=== PATIENT | female | born 1960 | race Caucasian/White ===

== ENCOUNTER → 2017-09-17 | Outpatient (CLI) | payer OTHER ==
--- NOTE | 2017-09-18 13:24 | BD ---
EXAMINATION TYPE: Axial Bone Density DATE OF EXAM: 09/17/2017 COMPARISON: NONE CLINICAL HISTORY: Postmenopausal female. Osteoporosis screening. Height: 68.5 Weight: 167.6 FRAX RISK QUESTIONS: Alcohol (3 or more units per day): no Family History (Parent hip fracture): no Glucocorticoids (More than 3mos): no (Ex: prednisone, prednisolone, methylprednisolone, dexamethasone, and hydrocortisone). History of Fracture in Adulthood: yes Secondary Osteoporosis: 1. Type 1 Diabetes: no 2. Hyperthyroidism: no 3. Menopause before 45: no 4. Malnutrition: no 5. Chronic liver disease: yes Rheumatoid Arthritis: no Current Tobacco Use: yes RISK FACTORS HISTORY OF: History of Wrist Fracture: right When: 2 years ago Surgery to Spine/Hip(right/left)/Wrist (right/left): right wrist When: 2 years ago Family History of Osteoporosis: yes Active: yes Diet low in dairy products/other sources of calcium: no Postmenopausal woman: 2006 Lost more than 2 inches in height since high school: no Frequent falls: no MEDICATIONS: lasix, aldactone, ursadol, coreg Additional History: EXAM MEASUREMENTS: Bone mineral densitometry was performed using the VeriWave System. Bone mineral density as measured about the Lumbar spine is: ----- L1-L4(G/cm2): 0.965 T Score Values are as follows: ----- L2: -1.6 ----- L3: -1.9 ----- L4: -1.9 ----- L1-L4: -1.8 Bone mineral density : baseline Bone mineral density about the R hip (g/cm2): 0.655 Bone mineral density about the L hip (g/cm2): 0.698 T Score values are as follows: -----R Neck: -2.8 -----L Neck: -2.4 -----R Total: -2.6 -----L Total: -2.4 Bone mineral density : baseline IMPRESSION: Osteoporosis (T Score less than -2.5) with regards to the right femur. There is increased fracture risk and therapy is usually indicated based on age. Re-Screen 1-2 years. NOTE: T-SCORE=SD OF THE YOUNG ADULT MEAN.
--- NOTE | 2017-09-23 13:46 | MM ---
Reason for exam: screening (asymptomatic). Last mammogram was performed 1 year and 7 months ago. History: Patient is postmenopausal. Benign left mammotome panel of the left breast, March 23, 2007. Core biopsy of the left breast, September 2006. Taking estrogen for 2 years beginning at age 45. Physical Findings: A clinical breast exam by your physician is recommended on an annual basis and results should be correlated with mammographic findings. MG Screening Mammo w CAD Bilateral CC and MLO view(s) were taken. Prior study comparison: March 02, 2016, bilateral MG 3d screening mammo w/cad. December 09, 2014, bilateral MG screening mammo w CAD. The breast tissue is heterogeneously dense. This may lower the sensitivity of mammography. Finding: There are typically benign calcifications in both breasts, similar to priors. New middle posterior depth distortion at the 11:30 position on the right. Left breast biopsy marker noted. ASSESSMENT: Incomplete: need additional imaging evaluation, BI-RAD 0 RECOMMENDATION: Special view mammogram of the right breast. If lesion persists on supplemental views, image directed ultrasound is recommended. [facility] will attempt to contact patient to return for supplemental views and ultrasound if indicated.
== END | disposition home or self-care (01) ==
LOC: RADMAMWWP 13:34
PROVIDERS: ATTEND Obstetrics & Gynecology
DX: Z12.31 Encounter for screening mammogram for malignant neoplasm of breast (principal); Z13.820 Encounter for screening for osteoporosis; M81.0 Age-related osteoporosis without current pathological fracture
CPT/HCPCS: 77067; 77080

== ENCOUNTER → 2017-10-08 | Outpatient (CLI) | payer OTHER ==
--- NOTE | 2017-10-08 14:22 | MM ---
Reason for exam: additional evaluation requested from abnormal screening. Last mammogram was performed 1 month ago. History: Patient is postmenopausal. Benign left mammotome panel of the left breast, March 23, 2007. Core biopsy of the left breast, September 2006. Taking estrogen for 2 years beginning at age 45. Physical Findings: Nurse did not find any significant physical abnormalities on exam. MG Work Up Mamm w CAD RT Spot compression CC, spot compression MLO, and ML view(s) were taken of the right breast. Prior study comparison: September 17, 2017, bilateral MG screening mammo w CAD. March 02, 2016, bilateral MG 3d screening mammo w/cad. The breast tissue is heterogeneously dense. This may lower the sensitivity of mammography. Finding: There are typically benign calcifications in the right breast. No suspicious abnormality. The previously seen abnormality appears as fibroglandular tissue on additional views. No significant changes in finding since September 17, 2017 and March 02, 2016. These results were verbally communicated with the patient and result sheet given to the patient on 10/08/17. ASSESSMENT: Benign, BI-RAD 2 RECOMMENDATION: Return to routine screening mammogram schedule for both breasts.
== END | disposition home or self-care (01) ==
LOC: RADMAMWWP 13:34
PROVIDERS: ATTEND Obstetrics & Gynecology
DX: R92.8 Other abnormal and inconclusive findings on diagnostic imaging of breast (principal)
CPT/HCPCS: 77065

== ENCOUNTER → 2018-10-14 | Outpatient (CLI) | payer OTHER ==
--- NOTE | 2018-10-14 14:04 | NM ---
EXAMINATION TYPE: NM bone scan whole body DATE OF EXAM: 10/14/2018 COMPARISON: Outside x-rays dated 10/11/2018, 10/12/2018 HISTORY: Pain Delayed whole-body scanning was performed following the injection of 26.1 mCi Tc 99m MDP. Images acq uired 3 hours post injection. FINDINGS: There is intense abnormal uptake involving the right maxilla. There is abnormal uptake involving the anterior mid right rib cage which is nonspecific. Abnormal uptake involving the feet, knees, and shoulders likely post arthritic. There is mild increased uptake involving the mid and lower thoracic spine and lumbosacral junction. T here is no marked increased uptake involving L2 corresponding to the endplate compression deformity. This suggest that is chronic. IMPRESSION: 1. Intense abnormal uptake involving the right maxilla correlate clinically and with x-ray as clinica lly warranted. 2. Mild intensity uptake seen throughout the mid and lower thoracic and lumbosacral junction likely d egenerative. 3. focal area of increased uptake involving the anterior right mid rib cage likely the basis of previ ous trauma.
== END ==
LOC: RADNMMAIN 10:11
PROVIDERS: ATTEND Physical Medicine & Rehabilitation
DX: R93.7 Abnormal findings on diagnostic imaging of other parts of musculoskeletal system (principal)
CPT/HCPCS: 78306; A9503

== ENCOUNTER → 2019-06-30 | Outpatient (CLI) | payer OTHER ==
--- NOTE | 2019-07-02 13:26 | MM ---
Reason for exam: screening (asymptomatic). Last mammogram was performed 1 year and 9 months ago. History: Patient is postmenopausal. Benign left mammotome panel of the left breast, March 23, 2007. Core biopsy of the left breast, September 2006. Took estrogen for 2 years beginning at age 45. Physical Findings: A clinical breast exam by your physician is recommended on an annual basis and results should be correlated with mammographic findings. MG Screening Mammo w CAD Bilateral CC and MLO view(s) were taken. Prior study comparison: October 08, 2017, right breast MG work up mamm w CAD RT. September 17, 2017, bilateral MG screening mammo w CAD. There are scattered fibroglandular densities. Previous mammotome biopsy in the left breast. Global asymmetry is unchanged with associated calcifications. Stable central and medial asymmetric density left CC view. No significant changes when compared with prior studies. ASSESSMENT: Benign, BI-RAD 2 RECOMMENDATION: Routine screening mammogram of both breasts in 1 year.
== END | disposition home or self-care (01) ==
LOC: RADMAMWWP 13:47
PROVIDERS: ATTEND Obstetrics & Gynecology
DX: Z12.31 Encounter for screening mammogram for malignant neoplasm of breast (principal)
CPT/HCPCS: 77067

== ENCOUNTER 2021-04-08 11:37 | Inpatient (IN) | payer OTHER ==
[2021-04-08] MEDS ORDERED: MORPHINE SULFATE 4 MG/ML SYRINGE IV STA (12:39)
[2021-04-08] MEDS ORDERED: SODIUM CHLORIDE 0.9% 1,000 ML IV STA (12:40)
[2021-04-08 13:27] LABS: Basophils % (A) 1 %; Eosinophils % (A) 1 %; HCT 42.2 % (34.0-46.0); Lymphocytes # (A) 0.5 k/uL (1.0-4.8); Lymphocytes % (A) 8 %; MCH 32.5 pg (25.0-35.0); MCHC 33.2 g/dL (31.0-37.0); MCV 97.9 fL (80.0-100.0); Macrocytosis Slight; Mean Platelet Volume 7.8; Monocytes # (A) 0.5 k/uL (0-1.0); Monocytes % (A) 8 %; Neutrophils # (A) 4.9 k/uL (1.3-7.7); Neutrophils % (A) 81 %; Platelet Count 109 k/uL (150-450); RBC 4.31 m/uL (3.80-5.40); RDW 15.5 % (11.5-15.5); WBC 6.1 k/uL (3.8-10.6)
[2021-04-08 13:35] LABS: INR 1.2 (<1.2); Partial Thromboplastin Time 24.6 sec (22.0-30.0)
[2021-04-08 13:37] LABS: ALT 22 U/L (4-34); AST 41 U/L (14-36); African American GFR (CKD) >90 (>60 ml/min/1.73 sqM); Alkaline Phosphatase 122 U/L (38-126); Amylase <30 U/L (30-110); Anion Gap 10 mmol/L; Blood Urea Nitrogen 13 mg/dL (7-17); Calcium 8.8 mg/dL (8.4-10.2); Carbon Dioxide 24 mmol/L (22-30); Chloride 97 mmol/L (98-107); Glucose 137 mg/dL (74-99); Lipase 103 U/L (23-300); Non-African American GFR(CKD) >90 (>60 ml/min/1.73 sqM); Potassium 4.3 mmol/L (3.5-5.1); Sodium 131 mmol/L (137-145); Total Protein 6.4 g/dL (6.3-8.2)
--- NOTE | 2021-04-08 13:52 | US ---
EXAMINATION TYPE: US renals and bladder DATE OF EXAM: 04/08/2021 COMPARISON: CT abdomen and pelvis 10/15/2018 CLINICAL HISTORY: decreased urination. EXAM MEASUREMENTS: Right Kidney: 7.9 x 4.6 x 4.4 cm Left Kidney: 9.9 x 5.4 x 5.2 cm Right Kidney: No hydronephrosis or masses seen, limited visualization due to overlying bowel and asci keith, measures small Left Kidney: No hydronephrosis or masses seen, limited visualization due to overlying bowel and ascit es Bladder: wnl, not distended Moderate ascites in pelvis Incidental Splenomegaly (17.8cm), moderate ascites, grossly heterogeneous, nodular, liver, known cirr hosis. There is no evidence for hydronephrosis at this point in time. No nephrolithiasis is seen. No andie s are identified. The urinary bladder is anechoic. Bilateral ureteral jets are seen. IMPRESSION: 1. Limited evaluation with no gross evidence of obstructive uropathy. 2. Hepatic cirrhosis with with sequela of portal hypertension including splenomegaly and ascites.
[2021-04-08] MEDS ORDERED: MORPHINE SULFATE 4 MG/ML SYRINGE IVP STA (14:59)
--- NOTE | 2021-04-08 15:15 | CT ---
EXAMINATION TYPE: CT abdomen pelvis w con DATE OF EXAM: 04/08/2021 COMPARISON: 10/15/2018 HISTORY: Hernia repair 02-28-21, surgery for bowel obstruction 03-30-21, distention and pain, decreased urine output. CT DLP: 1337.4 mGycm Automated exposure control for dose reduction was used. CONTRAST: Performed with IV Contrast, patient injected with 100 mL of Isovue 300. Images obtained from the diaphragm to the floor the pelvis with IV contrast. There is some mild interstitial infiltrate at the lung bases. There is no pleural effusion. Heart siz e is normal. There is no pericardial effusion. Liver is irregular and small consistent with cirrhosis. There is moderate abdominal ascites. Spleen i s enlarged and measures 14.5 cm. There are some splenic varices. There is no evidence of pancreatic m ass. There is differential enhancement in the portal venous system that could relate to some thrombos is. There is no adrenal mass. Kidneys show satisfactory contrast opacification. There is no hydronephrosi s. There is deformity of the right kidney with nonrotation. There is no retroperitoneal adenopathy. B ladder distends smoothly. There is no inguinal hernia. There is subcutaneous edema over the anterior abdomen. The lumbar vertebra have normal alignment. There is 20% compression deformity of T12. There is 15% co mpression of L2. The bony pelvis is intact. IMPRESSION: Splenomegaly and changes in the liver consistent with cirrhosis. There is moderate amount of abdomina l ascites. There is evidence for some chronic portal vein thrombosis with incomplete thrombosis of th e portal vein and superior mesenteric vein. Splenic varices related to chronic portal venous hypertension. Ascites appears new compared to old exam. Portal vein thrombosis is new compared to old exam.
[2021-04-08] MEDS ORDERED: HEPARIN SODIUM 1,000 UN/ML (10ML VL) IV ONE (15:44)
[2021-04-08 16:38] LABS: Appearance,Urine Clear (Clear); Bilirubin,Urine Negative (Negative); Blood,Urine Negative (Negative); Color,Urine Yellow; Glucose,Urine (UA) Negative (Negative); Ketones,Urine Trace (Negative); Leukocyte Esterase,Urine Negative (Negative); Mucus,Urine Moderate /hpf; Nitrite,Urine Negative (Negative); Protein,Urine 1+ (Negative); RBC,Urine 3 /hpf (0-5); Squamous Epithelial Cell,Urine 2 /hpf (0-4); WBC,Urine <1 /hpf (0-5)
[2021-04-08] MEDS ORDERED: ONDANSETRON 4 MG/2 ML VIAL IVP STA (16:38)
[2021-04-08] MEDS: HEPARIN SOD,PORK IN 0.45% NACL 25,000 UNIT in 0.45% NACL 1 250ML.BAG IV SCH (16:40)
[2021-04-08 16:42] LABS: Specific Gravity,Urine >1.050 (1.001-1.035)
[2021-04-08] MEDS ORDERED: NALOXONE 0.4 MG/ML 1 ML VIAL IV PRN ×2 (17:34→17:36)
[2021-04-08] MEDS ORDERED: MORPHINE SULFATE 4 MG/ML SYRINGE IV PRN (17:45)
[2021-04-08] MEDS ORDERED: ONDANSETRON 4 MG/2 ML VIAL IVP PRN (17:45)
[2021-04-08] MEDS ORDERED: FUROSEMIDE 40 MG TAB PO SCH (18:30)
--- NOTE | 2021-04-08 19:45 | HP ---
HISTORY AND PHYSICAL CHIEF COMPLAINTS: Abdominal pain and distention as well as ascitic fluid leak. HISTORY OF PRESENT ILLNESS: This 60-year-old woman with a past medical history of primary biliary cirrhosis, history of hyperlipidemia, history of hernia repair, history of DJD, being followed by Dr. Sutton in the outpatient setting, is also being followed by [facility]ology [facility]. The patient apparently had surgery on February 28 for hernia repair, and then March 30 patient had repeat surgery for apparent small-bowel obstruction. Records are not available at this time, but after the surgery the patient experienced some leaking from the surgical site, but in any case the patient was discharged. The patient was not feeling well over the past several days, and because of increasing abdominal distention as well as the leak from the surgical site, patient presented to [facility] and was admitted for further evaluation and treatment. The ER team are contacted [facility]. Apparently there is no bed at this time and the patient was recommended to report to the nearest hospital at this time. Gastroenterology consultation has been also sought. The patient is willing to stay here to undergo treatment and evaluation here at this time. The patient also was found to have portal vein thrombosis in the in the CT scan of the abdomen and pelvis. The ER physician tried to talk with the [facility] team; and it was not clear whether this is acute or chronic. The CT scan showed splenomegaly and changes in the liver consistent with cirrhosis and moderate amount of abdominal ascites. Some chronic portal vein thrombosis was suspect with incomplete thrombosis of the portal vein and the superior mesenteric vein also. related to chronic portal venous hypertension was also noted. There is no history of any fever, rigor or chills at this time. PAST MEDICAL HISTORY: History of primary biliary cirrhosis, liver disease, recent two surgeries as mentioned earlier. MEDICATIONS PRIOR TO ADMISSION: Aldactone, Lasix, Coreg, Actigall, Keflex. Doses are reviewed. ALLERGIES: NONE. FAMILY HISTORY: No history of heart disease or strokes in the family. SOCIAL HISTORY: Previous history of smoking. No history of alcohol intake. No substance abuse. REVIEW OF SYSTEMS: ENT: No diminished hearing. No diminished vision. CARDIOVASCULAR SYSTEM: No angina, palpitations. RESPIRATORY SYSTEM: As mentioned earlier. GI: As mentioned earlier. : No dysuria. NERVOUS SYSTEM: No numbness, weakness. ALLERGY/IMMUNOLOGY: No asthma or hay fever. MUSCULOSKELETAL: As mentioned earlier. HEMATOLOGY/ONCOLOGY: No history of anemia. ENDOCRINE: No history of diabetes or hypothyroidism. CONSTITUTIONAL: As mentioned earlier. DERMATOLOGY: Negative. RHEUMATOLOGY: Negative. PSYCHIATRY: As mentioned earlier. PHYSICAL EXAMINATION: Patient is alert, oriented x3. Pulse is 129, blood pressure 104/72, respiration 18, temperature 97.1, pulse ox 96% on room air. HEENT: Conjunctivae normal. Oral mucosa moist. NECK: No jugular venous distention. No carotid bruit. No lymph node enlargement. CARDIOVASCULAR: S1, S2 muffled. RESPIRATION: Breath sounds diminished at the bases. No rhonchi. No crackles. ABDOMEN: Soft. Diffusely distended. Ascites present. Flanks are dull. Otherwise, minimal tenderness postoperatively. No guarding. No rigidity. No mass palpable. LEGS: No edema. No swelling. NERVOUS SYSTEM: Higher functions as mentioned earlier. Moves all 4 limbs. No focal motor or sensory deficit. LYMPHATICS: No lymph node palpable in neck, axillae or groin. SKIN: No ulcer, rash, bleeding. JOINTS: No active deforming arthropathy. LABS: Labs at this time show WBC 6.1 and platelets 109. INR is 1.2. Sodium is 131, creatinine 0.4, glucose 137, AST is 41, amylase less than 30. UA noted. CT scan of the chest and CT scan of the abdomen and pelvis noted. Splenomegaly and other changes as detailed. A renal ultrasound was also done which showed no gross evidence of obstructive uropathy; also hepatic cirrhosis noted. ASSESSMENT: 1. Abdominal ascites as well as leaking from the surgical site, possibly secondary to cirrhosis of the liver. 2. History of recent surgery for small bowel obstruction as well as hiatal hernia x2 from elsewhere, [facility]. 3. Possible acute on chronic portal vein thrombosis. 4. Hyperlipidemia. 5. History of primary biliary cirrhosis. 6. History of hernia repair. 7. Hysterectomy. 8. History of degenerative joint disease. 9. Remote history of nicotine dependence. 10.FULL CODE. RECOMMENDATIONS AND DISCUSSION: In this 60-year-old woman who presented with multiple complex medical issues, we will monitor the patient closely, continue the current medications, continue symptomatic treatment. Pain control. Diuretics. I would also recommend consultation with Surgery as well as Gastroenterology. [facility] has been contacted, as mentioned earlier, before. I would also recommend ascitic fluid aspiration and studies. Empiric antibiotic coverage will be offered. Prognosis is guarded because of multiple complex medical issues. Further recommendations to follow. A copy of this dictation being forwarded to Dr. Sutton, who is the primary physician. Repeat labs also will be done. Discussed with the patient and her at the bedside, who understand and agree. MMODL / IJN: [id number] /
[2021-04-08] MEDS: FUROSEMIDE 10 MG/ML 4 ML VIAL IV SCH (20:12)
--- NOTE | 2021-04-08 20:28 | ED ---
General Adult HPI - General Chief complaint: Abdominal Pain Stated complaint: post bowel obstruction surg pain Time Seen by Provider: 04/08/21 12:06 Source: patient Mode of arrival: wheelchair Limitations: no limitations - History of Present Illness Initial comments: Patient is a 60-year-old female with past medical history remarkable for primary biliary cirrhosis status post recent abdominal hernia surgery and subsequent small bowel obstruction surgery performed at [facility] presents emergency Department complaining of worsening ascites and abdominal distention. She states this is been ongoing over the last week or so. She has also noticed that she is having decreased urinary output. She denies any chest pain, diarrhea or change in bowel habits. She still passing flatus. Denies any nausea. Her complaint is the abdominal distention. She denies any fevers, chills, sick contacts. She denies any cough. She has been taking water pills but did not take them this morning. Does endorse some mild baseline ascites. She has noticed some ascitic fluid oozing from her surgical incision midline in her abdomen. She called her surgeon today at [facility] who recommended that she presented to the emergency department for evaluation. - Related Data Home Medications Medication Instructions Recorded Confirmed Carvedilol [Coreg] 6.25 mg PO DIRECTED 10/15/18 04/08/21 Furosemide [Lasix] 40 mg PO DIRECTED 10/15/18 04/08/21 Spironolactone [Aldactone] 100 mg PO DIRECTED 10/15/18 04/08/21 ursodioL [Actigall] 600 mg PO DIRECTED 10/15/18 04/08/21 Cephalexin [Keflex] 500 mg PO BID 04/08/21 04/08/21 Allergies Allergy/AdvReac Type Severity Reaction Status Date / Time No Known Allergies Allergy Verified 04/08/21 15:10 Review of Systems ROS Statement: Those systems with pertinent positive or pertinent negative responses have been documented in the HPI. Review of Systems: CONST: Denies fever EYES: Denies blurry vision ENT: Denies nasal congestion C/V: Denies Chest pain RESP: Denies shortness of breath GI: Endorses abdominal distention : Denies dysuria SKIN: Endorses leaking surgical site MSK: Denies joint pain. NEURO: Denies headache ROS Other: All systems not noted in ROS Statement are negative. Past Medical History Past Medical History: Hyperlipidemia, Liver Disease Additional Past Medical History / Comment(s): primary biliary cirrhosis History of Any Multi-Drug Resistant Organisms: None Reported Past Surgical History: Hernia Repair, Hysterectomy, Orthopedic Surgery Additional Past Surgical History / Comment(s): R wrist, mat feet surgery Past Anesthesia/Blood Transfusion Reactions: No Reported Reaction Past Psychological History: No Psychological Hx Reported Smoking Status: Former smoker Past Alcohol Use History: None Reported Past Drug Use History: None Reported - Past Family History family Additional Family Medical History / Comment(s): No history of premature CAD General Exam - General Exam Comments Initial Comments: General: Mild distress secondary to abdominal discomfort. HEAD: Normal with no signs of head trauma. EYES: PERRLA, EOMI, conjunctiva normal, no discharge. ENT: Hearing grossly intact, normal oropharynx. RESPIRATORY: Clear breath sounds bilaterally. No wheezes, rales, or rhonchi. C/V: Tachycardic, regular rhythm. S1 and S2 auscultated. Peripheral pulses are 2+ intact. No peripheral edema. ABD: Abdomen is distended, nontender. Positive fluid wave. Patient appears to have ascites. No guarding. No peritoneal signs. EXT: Normal range of motion, no obvious deformity SKIN: No rashes or lesions observed on exposed skin. NEURO: Alert and oriented 4. Limitations: no limitations Course Vital Signs 04/08/21 04/08/21 04/08/21 11:39 15:00 18:00 Temperature 97.1 F L Pulse Rate 129 H 110 H 115 H Respiratory 18 18 16 Rate Blood Pressure 104/72 110/70 134/74 O2 Sat by Pulse 96 98 100 Oximetry Medical Decision Making - Medical Decision Making Based on the patient's presentation and physical exam, and concern for her worsening ascites. She may have an acute blockage, renal failure, or other intra-abdominal process at this time. We will obtain abdominal laboratory studies, EKG, abdominal imaging including ultrasound of the kidneys and bladder as well as CT abdomen and pelvis. She'll be given morphine for pain management. She also be given Zofran. She was in agreement this plan. Laboratory studies are relatively unremarkable, except for mild hyponatremia of 131 and hyperchloremia of 97. Lactate is 1.5 and normal. Before meals is mildly elevated to 41. There but is mildly elevated at 3.0. Albumin is low at 3.0. Urinalysis is unremarkable. Patient's EKG shows no signs of acute ischemi a. Renal ultrasound revealed no evidence of obstructive uropathy. There is hepatic cirrhosis with portal hypertension including splenomegaly and ascites. CT imaging was obtained and revealed splenomegaly redemonstrated, as well as moderate abdominal ascites with a chronic portal vein thrombosis with incomplete thrombosis of the portal vein and superior mesenteric vein. Parasplenic varices. Ascites is new compared to prior exams. I discussed with the patient that due to the portal vein thrombosis, I would like to start her on heparin. She was in agreement this plan. I spoke with Dr. Estrada of vascular surgery who was in agreement this plan and will evaluate the patient tomorrow. The patient requested that I reach out to [facility] which was done. I spoke with the surgical team there, a resident named Sheridan multiple times. She turned down the transfer, as the hospital is only excepting urgent transfers at this time. However she was able to compare imaging and they decided that the portal vein thrombosis may be worse than her there most recent CT imaging. They believe heparin is reasonable. They requested she be admitted and evaluated by GI services here. We will have GI services starting tomorrow on April 09. Dr. Best will be consulted for evaluation. I spoke with Dr. Foss of surgery who agreed to evaluate the patient. I discussed with him the leaking ascitic fluid, and as there are no signs of acute infection we will hold off on antibiotics at this time. We will restart her home diuresis. There were in agreement this plan. Patient may require paracentesis on this admission, however I'll defer to gastroenterology's evaluation, she is feeling improved on reevaluation at this time.Spoke with the admitting team under Dr. Belcher who accepted the admission. Patient was admitted in serous condition. - Lab Data Result diagrams: 04/08/21 13:08 04/08/21 13:08 Lab Results 04/08/21 04/08/21 04/08/21 Range/Units 13:08 13:08 13:08 WBC 6.1 (3.8-10.6) k/uL RBC 4.31 (3.80-5.40) m/uL Hgb 14.0 (11.4-16.0) gm/dL Hct 42.2 (34.0-46.0) % MCV 97.9 (80.0-100.0) fL MCH 32.5 (25.0-35.0) pg MCHC 33.2 (31.0-37.0) g/dL RDW 15.5 (11.5-15.5) % Plt Count 109 L (150-450) k/uL MPV 7.8 Neutrophils % 81 % Lymphocytes % 8 % Monocytes % 8 % Eosinophils % 1 % Basophils % 1 % Neutrophils # 4.9 (1.3-7.7) k/uL Lymphocytes # 0.5 L (1.0-4.8) k/uL Monocytes # 0.5 (0-1.0) k/uL Eosinophils # 0.0 (0-0.7) k/uL Basophils # 0.0 (0-0.2) k/uL Macrocytosis Slight PT 12.0 (9.0-12.0) sec INR 1.2 H (<1.2) APTT 24.6 (22.0-30.0) sec Sodium 131 L (137-145) mmol/L Potassium 4.3 (3.5-5.1) mmol/L Chloride 97 L (98-107) mmol/L Carbon Dioxide 24 (22-30) mmol/L Anion Gap 10 mmol/L BUN 13 (7-17) mg/dL Creatinine 0.44 L (0.52-1.04) mg/dL Est GFR (CKD-EPI)AfAm >90 (>60 ml/min/1.73 sqM) Est GFR (CKD-EPI)NonAf >90 (>60 ml/min/1.73 sqM) Glucose 137 H (74-99) mg/dL Plasma Lactic Acid Kenneth (0.7-2.0) mmol/L Calcium 8.8 (8.4-10.2) mg/dL Total Bilirubin 3.0 H (0.2-1.3) mg/dL AST 41 H (14-36) U/L ALT 22 (4-34) U/L Alkaline Phosphatase 122 (38-126) U/L Total Protein 6.4 (6.3-8.2) g/dL Albumin 3.0 L (3.5-5.0) g/dL Amylase <30 L (30-110) U/L Lipase 103 (23-300) U/L Urine Color Urine Appearance (Clear) Urine pH (5.0-8.0) Ur Specific [place] (1.001-1.035) Urine Protein (Negative) Urine Glucose (UA) (Negative) Urine Ketones (Negative) Urine Blood (Negative) Urine Nitrite (Negative) Urine Bilirubin (Negative) Urine Urobilinogen (<2.0) mg/dL Ur Leukocyte Esterase (Negative) Urine RBC (0-5) /hpf Urine WBC (0-5) /hpf Ur Squamous Epith Cells (0-4) /hpf Urine Mucus (None) /hpf 04/08/21 04/08/21 04/08/21 Range/Units 14:40 15:30 16:27 WBC (3.8-10.6) k/uL RBC (3.80-5.40) m/uL Hgb (11.4-16.0) gm/dL Hct (34.0-46.0) % MCV (80.0-100.0) fL MCH (25.0-35.0) pg MCHC (31.0-37.0) g/dL RDW (11.5-15.5) % Plt Count (150-450) k/uL MPV Neutrophils % % Lymphocytes % % Monocytes % % Eosinophils % % Basophils % % Neutrophils # (1.3-7.7) k/uL Lymphocytes # (1.0-4.8) k/uL Monocytes # (0-1.0) k/uL Eosinophils # (0-0.7) k/uL Basophils # (0-0.2) k/uL Macrocytosis PT (9.0-12.0) sec INR (<1.2) APTT 24.2 (22.0-30.0) sec Sodium (137-145) mmol/L Potassium (3.5-5.1) mmol/L Chloride (98-107) mmol/L Carbon Dioxide (22-30) mmol/L Anion Gap mmol/L BUN (7-17) mg/dL Creatinine (0.52-1.04) mg/dL Est GFR (CKD-EPI)AfAm (>60 ml/min/1.73 sqM) Est GFR (CKD-EPI)NonAf (>60 ml/min/1.73 sqM) Glucose (74-99) mg/dL Plasma Lactic Acid Kenneth 1.5 (0.7-2.0) mmol/L Calcium (8.4-10.2) mg/dL Total Bilirubin (0.2-1.3) mg/dL AST (14-36) U/L ALT (4-34) U/L Alkaline Phosphatase (38-126) U/L Total Protein (6.3-8.2) g/dL Albumin (3.5-5.0) g/dL Amylase (30-110) U/L Lipase (23-300) U/L Urine Color Yellow Urine Appearance Clear (Clear) Urine pH 6.0 (5.0-8.0) Ur Specific [place] >1.050 H (1.001-1.035) Urine Protein 1+ H (Negative) Urine Glucose (UA) Negative (Negative) Urine Ketones Trace H (Negative) Urine Blood Negative (Negative) Urine Nitrite Negative (Negative) Urine Bilirubin Negative (Negative) Urine Urobilinogen 4.0 (<2.0) mg/dL Ur Leukocyte Esterase Negative (Negative) Urine RBC 3 (0-5) /hpf Urine WBC <1 (0-5) /hpf Ur Squamous Epith Cells 2 (0-4) /hpf Urine Mucus Moderate H (None) /hpf - EKG Data -: EKG Interpreted by Me EKG Comments: 12-lead Electrocardiogram Interpretation Note EKG was reviewed and interpreted by myself. 12-lead ECG performed at 1258 is interpreted by me as revealing sinus tachycardia at a rate of 117 beats per minute. [place] is normal. MO interval is 130 ms, QRS duration 60 ms, QTc is 415 ms.. There were no ST or T wave abnormalities to suggest myocardial ischemia or injury. R wave progression across the precordium was satisfactory. By my interpretation this EKG is non-diagnostic for acute ischemia. Critical Care Time Critical Care Time: Yes Total Critical Care Time: 30 Critical Care Time: Upon my evaluation, this patient had a high probability of imminent or life- threatening deterioration due to portal venous thrombosis, acute ascites, which required my direct attention, intervention, and personal management. I have personally provided 30 minutes of critical care time exclusive of time spent on separately billable procedures. Time includes review of laboratory data, radiology results, discussion with consultants and patient's outside doctors, and monitoring for potential decompensation. Interventions were performed as documented in my note. Disposition Clinical Impression: Ascites, Portal vein thrombosis, Portal venous hypertension, Abdominal pain Disposition: ADMITTED IP TO THIS HOSP Condition: Serious
[2021-04-08] MEDS ORDERED: SPIRONOLACTONE 25 MG TAB PO SCH (21:00)
[2021-04-08] MEDS: SPIRONOLACTONE 25 MG TAB PO SCH (21:40)
[2021-04-08] MEDS: PANTOPRAZOLE 40 MG/10 ML VIAL IVP SCH (21:43)
[2021-04-09] MEDS: carvediloL 6.25 MG TAB PO SCH (00:55)
[2021-04-09] MEDS: FUROSEMIDE 10 MG/ML 4 ML VIAL IV SCH ×4 (00:56→19:48)
[2021-04-09] MEDS: SPIRONOLACTONE 25 MG TAB PO SCH (08:24)
[2021-04-09] MEDS: HEPARIN SODIUM 1,000 UN/ML (10ML VL) IV PRN ×2 (08:24→15:52)
[2021-04-09] MEDS: PANTOPRAZOLE 40 MG/10 ML VIAL IVP SCH ×2 (08:30→19:48)
[2021-04-09 09:04] LABS: African American GFR (CKD) 121.1 (60.0-200.0); Albumin 2.8 g/dL (3.8-4.9); Albumin/Globulin Ratio 1.12 (1.60-3.17); Anion Gap 8.2 mmol/L (10.00-18.00); BUN/Creat Ratio 22.6 Ratio (12.00-20.00); Blood Urea Nitrogen 11.3 mg/dL (9.0-27.0); Calcium 8.8 mg/dL (8.7-10.3); Carbon Dioxide 25.8 mmol/L (20.0-27.5); Globulin 2.5 g/dL (1.6-3.3); Non-African American GFR(CKD) 104.5 (60.0-200.0); Potassium 5.3 mmol/L (3.5-5.5); Total Bilirubin 1.6 mg/dL (0.30-1.20); Total Protein 5.3 g/dL (6.2-8.2)
[2021-04-09 09:21] LABS: INR 1.12 (0.90-1.11); Prothrombin Time 12.3 sec (9.9-11.9)
[2021-04-09 10:13] LABS: Basophils # (A) 0.02 X 10*3/uL (0.00-0.10); Basophils % (A) 0.6 %; Eosinophils # (A) 0.04 X 10*3/uL (0.04-0.35); Eosinophils % (A) 1.1 %; HCT 37.6 % (37.2-46.3); HGB 11.6 g/dL (12.0-15.0); Lymphocytes # (A) 0.45 X 10*3/uL (0.90-5.00); Lymphocytes % (A) 12.5 %; MCH 30.9 pg (27.0-32.0); MCHC 30.9 g/dL (32.0-37.0); Mean Platelet Volume 10.1 fL (9.5-12.2); Monocytes # (A) 0.47 X 10*3/uL (0.20-1.00); Monocytes % (A) 13.1 %; Neutrophils # (A) 2.59 X 10*3/uL (1.80-7.70); Neutrophils % (A) 72.1 %; Platelet Count 71 X 10*3/uL (140-440); RBC 3.76 X 10*6/uL (4.10-5.20); RDW 15.5 % (11.5-14.5); WBC 3.59 X 10*3/uL (4.50-10.00)
--- NOTE | 2021-04-09 12:29 | P.GSCN ---
History of Present Illness Consult date: 04/09/21 History of present illness: 60-year-old female with known primary biliary cirrhosis presents to the emergency department with ascites drainage from recent abdominal wound. She did undergo an umbilical hernia repair on February 28 of this year after Thanksgivin g, the patient began having significant abdominal distention and nausea and vomiting. On work-up, she was found to have a small bowel obstruction. She did return to the [facility] to follow with her previous surgeon and did undergo a laparotomy with release of the small bowel obstruction on March 30. She was discharged on April 03. On arrival to the emergency department, patient complained of significant distention of the abdomen and leakage of clear fluid from the inferior portion of the abdominal wound. She denies any nausea or vomiting. She did have abdominal pain associated with this issue. Review of Systems All systems: negative Past Medical History Past Medical History: Hyperlipidemia, Liver Disease Additional Past Medical History / Comment(s): primary biliary cirrhosis History of Any Multi-Drug Resistant Organisms: None Reported Past Surgical History: Hernia Repair, Hysterectomy, Orthopedic Surgery Additional Past Surgical History / Comment(s): R wrist, mat feet surgery Past Anesthesia/Blood Transfusion Reactions: No Reported Reaction Past Psychological History: No Psychological Hx Reported Smoking Status: Former smoker Past Alcohol Use History: None Reported Past Drug Use History: None Reported - Past Family History family Additional Family Medical History / Comment(s): No history of premature CAD Medications and Allergies Home Medications Medication Instructions Recorded Confirmed Type Carvedilol [Coreg] 6.25 mg PO HS 10/15/18 04/09/21 History Furosemide [Lasix] 40 mg PO BID 10/15/18 04/09/21 History Spironolactone [Aldactone] 100 mg PO BID 10/15/18 04/09/21 History ursodioL [Actigall] 600 mg PO BID 10/15/18 04/09/21 History Cephalexin [Keflex] 500 mg PO BID 04/08/21 04/08/21 History Allergies Allergy/AdvReac Type Severity Reaction Status Date / Time No Known Allergies Allergy Verified 04/08/21 15:10 Surgical - Exam Osteopathic Statement: *. No significant issues noted on an osteopathic structural exam other than those noted in the History and Physical/Consult. Vital Signs Temp Pulse Resp BP Pulse Ox 97.1 F L 129 H 18 104/72 96 04/08/21 11:39 12/12/21 11:39 04/08/21 11:39 04/08/21 11:39 04/08/21 11:39 - General no distress - Eyes normal ocular movement - ENT no hearing loss - Neck trachea midline - Respiratory normal respiratory effort - Abdomen Soft, nontender, midline incision with ascitic drainage from the inferior portion of the wound, moderate distention, no rebound, no guarding - Psychiatric oriented to time, oriented to person, oriented to place Results - Labs 04/09/21 04:27 04/09/21 04:27 Abnormal Lab Results - Last 24 Hours (Table) 04/08/21 04/08/21 04/08/21 Range/Units 13:08 13:08 13:08 WBC (4.50-10.00) X 10*3/uL RBC (4.10-5.20) X 10*6/uL Hgb (12.0-15.0) g/dL MCV (80.0-97.0) fL MCHC (32.0-37.0) g/dL RDW (11.5-14.5) % Plt Count 109 L (150-450) k/uL Plt Count Comment Lymphocytes # 0.5 L (1.0-4.8) k/uL PT (9.9-11.9) sec INR 1.2 H (<1.2) APTT (22.0-30.0) sec Sodium 131 L (137-145) mmol/L Chloride 97 L (98-107) mmol/L Anion Gap (10.00-18.00) mmol/L Creatinine 0.44 L (0.52-1.04) mg/dL BUN/Creatinine Ratio (12.00-20.00) Ratio Glucose 137 H (74-99) mg/dL Total Bilirubin 3.0 H (0.2-1.3) mg/dL AST 41 H (14-36) U/L Total Protein (6.2-8.2) g/dL Albumin 3.0 L (3.5-5.0) g/dL Albumin/Globulin Ratio (1.60-3.17) g/dL Amylase <30 L (30-110) U/L Ur Specific [place] (1.001-1.035) Urine Protein (Negative) Urine Ketones (Negative) Urine Mucus (None) /hpf 04/08/21 04/08/21 04/09/21 Range/Units 15:30 20:00 04:27 WBC (4.50-10.00) X 10*3/uL RBC (4.10-5.20) X 10*6/uL Hgb (12.0-15.0) g/dL MCV (80.0-97.0) fL MCHC (32.0-37.0) g/dL RDW (11.5-14.5) % Plt Count (150-450) k/uL Plt Count Comment Lymphocytes # (1.0-4.8) k/uL PT 12.3 H (9.9-11.9) sec INR 1.12 H (<1.2) APTT 61.1 H (22.0-30.0) sec Sodium (137-145) mmol/L Chloride (98-107) mmol/L Anion Gap (10.00-18.00) mmol/L Creatinine (0.52-1.04) mg/dL BUN/Creatinine Ratio (12.00-20.00) Ratio Glucose (74-99) mg/dL Total Bilirubin (0.2-1.3) mg/dL AST (14-36) U/L Total Protein (6.2-8.2) g/dL Albumin (3.5-5.0) g/dL Albumin/Globulin Ratio (1.60-3.17) g/dL Amylase (30-110) U/L Ur Specific [place] >1.050 H (1.001-1.035) Urine Protein 1+ H (Negative) Urine Ketones Trace H (Negative) Urine Mucus Moderate H (None) /hpf 04/09/21 04/09/21 04/09/21 Range/Units 04:27 04:27 06:28 WBC 3.59 L (4.50-10.00) X 10*3/uL RBC 3.76 L (4.10-5.20) X 10*6/uL Hgb 11.6 L (12.0-15.0) g/dL MCV 100.0 H (80.0-97.0) fL MCHC 30.9 L (32.0-37.0) g/dL RDW 15.5 H (11.5-14.5) % Plt Count 71 L (150-450) k/uL Plt Count Comment DECREASED A Lymphocytes # 0.45 L (1.0-4.8) k/uL PT (9.9-11.9) sec INR (<1.2) APTT 37.7 H (22.0-30.0) sec Sodium 133 L (137-145) mmol/L Chloride (98-107) mmol/L Anion Gap 8.20 L (10.00-18.00) mmol/L Creatinine 0.5 L (0.52-1.04) mg/dL BUN/Creatinine Ratio 22.60 H (12.00-20.00) Ratio Glucose (74-99) mg/dL Total Bilirubin 1.60 H (0.2-1.3) mg/dL AST (14-36) U/L Total Protein 5.3 L (6.2-8.2) g/dL Albumin 2.8 L (3.5-5.0) g/dL Albumin/Globulin Ratio 1.12 L (1.60-3.17) g/dL Amylase (30-110) U/L Ur Specific [place] (1.001-1.035) Urine Protein (Negative) Urine Ketones (Negative) Urine Mucus (None) /hpf Diabetes panel 04/08/21 04/09/21 Range/Units 13:08 04:27 Sodium 131 L 133 L (137-145) mmol/L Potassium 4.3 5.3 (3.5-5.1) mmol/L Chloride 97 L 99 (98-107) mmol/L Carbon Dioxide 24 25.8 (22-30) mmol/L BUN 13 11.3 (7-17) mg/dL Creatinine 0.44 L 0.5 L (0.52-1.04) mg/dL Glucose 137 H 102 (74-99) mg/dL Calcium 8.8 8.8 (8.4-10.2) mg/dL AST 41 H 28 (14-36) U/L ALT 22 17 (4-34) U/L Alkaline Phosphatase 122 105 (38-126) U/L Total Protein 6.4 5.3 L (6.3-8.2) g/dL Albumin 3.0 L 2.8 L (3.5-5.0) g/dL Calcium panel 04/08/21 04/09/21 Range/Units 13:08 04:27 Calcium 8.8 8.8 (8.4-10.2) mg/dL Albumin 3.0 L 2.8 L (3.5-5.0) g/dL Pituitary panel 04/08/21 04/09/21 Range/Units 13:08 04:27 Sodium 131 L 133 L (137-145) mmol/L Potassium 4.3 5.3 (3.5-5.1) mmol/L Chloride 97 L 99 (98-107) mmol/L Carbon Dioxide 24 25.8 (22-30) mmol/L BUN 13 11.3 (7-17) mg/dL Creatinine 0.44 L 0.5 L (0.52-1.04) mg/dL Glucose 137 H 102 (74-99) mg/dL Calcium 8.8 8.8 (8.4-10.2) mg/dL Adrenal panel 04/08/21 04/09/21 Range/Units 13:08 04:27 Sodium 131 L 133 L (137-145) mmol/L Potassium 4.3 5.3 (3.5-5.1) mmol/L Chloride 97 L 99 (98-107) mmol/L Carbon Dioxide 24 25.8 (22-30) mmol/L BUN 13 11.3 (7-17) mg/dL Creatinine 0.44 L 0.5 L (0.52-1.04) mg/dL Glucose 137 H 102 (74-99) mg/dL Calcium 8.8 8.8 (8.4-10.2) mg/dL Total Bilirubin 3.0 H 1.60 H (0.2-1.3) mg/dL AST 41 H 28 (14-36) U/L ALT 22 17 (4-34) U/L Alkaline Phosphatase 122 105 (38-126) U/L Total Protein 6.4 5.3 L (6.3-8.2) g/dL Albumin 3.0 L 2.8 L (3.5-5.0) g/dL Assessment and Plan Plan: 60-year-old female with history of primary biliary cirrhosis and ascites draining from recent surgical wound. Case was discussed with the patient's hepatobiliary surgeon, Dr. Hany Sheridan, at the [facility] where she had her previous procedures performed.We are unable to transfer the patient to his service based on the current Covid pandemic and no bed availability having shortages. At this time, he agrees with the plan for diuresis and therapeutic paracentesis along with likely suturing of the incision site with 2-0 nylon suture and application of skin glue. Additionally, we will await GI recommendations. This is likely secondary to mild decompensation of the liver after multiple procedures in the last month or so.
--- NOTE | 2021-04-09 15:25 | P.PN ---
Subjective Progress Note Date: 04/09/21 This is a pleasant 60-year-old female who was recently admitted with increasing abdominal distention and some leaking from previous surgical site from March 30 and was recently discharged on April 03 from [facility]. Patient follows with Dr. Hany Sheridan out of [facility] and c onversation is being discussed as there are no beds available to transfer to [facility]. Patient had surgery consult along with GI for possible paracentesis and surgical intervention to this leaking site on the abdomen and patient reluctant to proceed with paracentesis until all medical consultations have discussed with Dr. sheridan treatment plan moving forward. General surgery Dr. Foss following and did discuss the case with the [facility] and GI consult is pending. 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 Patient is maintained on IV heparin will need to be held prior to paracentesis. A she to continue with IV Lasix twice daily along with oral Aldactone and patient also continues on IV ceftriaxone. Infectious disease also consulted and pending. Labs: White blood count is 3.59, hemoglobin is 11.6, platelets are 71, INR is 1.12, sodium is 133, potassium 5.3, BUN 11.3, creatinine 0.5, calcium 8.8, total bilirubin 1.6, LFTs within normal limits, albumin low at 2.8, COVID-19 was negative Review of systems: Constitutional: No reports of fatigue, fever, or chills Cardiovascular: No reports of chest pain or palpitations Respiratory: No reports of shortness of breath or cough GI: No reports of nausea, vomiting, or diarrhea, reports abdominal distention and some tenderness with continued leaking at the recent surgical site : No reports of dysuria or retention Neurovascular: No reports of weakness or numbness All medications have been reviewed Active Medications Carvedilol (Carvedilol 6.25 Mg Tab) 6.25 mg PO HS [facility] Last Admin: 04/09/21 00:55 Dose: Not Given Documented by: Furosemide (Furosemide 10 Mg/Ml 4 Ml Vial) 40 mg IV Q8HR [facility] Last Admin: 04/09/21 08:30 Dose: 40 mg Documented by: Heparin Sodium (Porcine) (Heparin Sodium 1,000 Un/Ml (10ml Vl)) 0 unit IV PER PROTOCOL PRN; Protocol PRN Reason: Low PTT Last Admin: 04/09/21 08:24 Dose: 1,996 unit Documented by: Heparin Sodium/Sodium Chloride (25,000 unit/ Sodium Chloride) 250 mls @ 9.58 mls/hr IV .Q24H [facility]; Protocol Last Titration: 04/09/21 08:10 Dose: 14 units/kg/hr, 11.176 mls/hr Documented by: Ceftriaxone Sodium 1 gm/ (Sodium Chloride) 50 mls @ 100 mls/hr IVPB Q24HR [facility] Last Admin: 04/09/21 08:30 Dose: 100 mls/hr Documented by: Morphine Sulfate (Morphine Sulfate 4 Mg/Ml Syringe) 4 mg IV Q4HR PRN PRN Reason: Severe Pain Last Admin: 04/08/21 20:11 Dose: 4 mg Documented by: Naloxone HCl (Naloxone 0.4 Mg/Ml 1 Ml Vial) 0.2 mg IV Q2M PRN PRN Reason: Opioid Reversal Ondansetron HCl (Ondansetron 4 Mg/2 Ml Vial) 4 mg IVP Q8HR PRN PRN Reason: Nausea And Vomiting Last Admin: 04/08/21 22:18 Dose: 4 mg Documented by: Pantoprazole Sodium (Pantoprazole 40 Mg/10 Ml Vial) 40 mg IVP BID [facility] Last Admin: 04/09/21 08:30 Dose: 40 mg Documented by: Spironolactone (Spironolactone 25 Mg Tab) 100 mg PO DAILY [facility] Last Admin: 04/09/21 08:24 Dose: 100 mg Documented by: Physical exam: Gen: This is a 60-year-old female awake, alert and oriented 3, well-developed, well-nourished. Temp is 97.7F, pulse is 86, respirations are 18, blood pressure is 88/63, oxygen saturation is 99% on room air HEENT: Head is atraumatic, normocephalic. Pupils equal, round. Sclerae is anicteric. NECK: Supple. No JVD. No lymphadenopathy. No thyromegaly. LUNGS: Diminished breath sounds bilaterally with no wheezing or rhonchi noted. No intercostal retractions. HEART: S1, S2 are muffled ABDOMEN: Soft. Distended. Bowel sounds are present. No masses. No tenderness. Multiple ABD pads noted EXTREMITIES: No pedal edema. No calf tenderness. NEUROLOGICAL: Patient is awake, alert and oriented x3. Cranial nerves 2 through 12 are grossly intact. Assessment: Abdominal ascites as well as leaking from the surgical site, possibly secondary to cirrhosis of the liver History of recent surgery for small bowel obstruction as well as hiatal hernia 2 at the [facility] Possible acute on chronic portal vein thrombosis History of primary biliary cirrhosis Hyperlipidemia history of hernia repair History of hysterectomy history of degenerative joint disease remote history of nicotine dependence Full code Plan: Recommend to continue with current medications and management. Patient is maintained on IV Lasix and Aldactone has been added. Gen. surgery Dr. Foss following closely along with GI being consulted and infectious disease. Patient is maintained on IV ceftriaxone and will continue. Plan is for paracentesis with fluid analysis and Dr. Foss has discussed with Dr. sheridan out of [facility] who is the patient's provider for recent surgeries. Patient maintained on IV heparin and will hold for 4 hours prior to paracentesis and patient is agreeable to undergo paracentesis in the morning. Repeat a.m. labs and continue to monitor closely. Further recommendations to follow based on the clinical course of the patient. Due to multiple complex medical issues, prognosis is guarded. Objective - Vital Signs Vital signs: Vital Signs Temp 97.9 F 04/09/21 13:25 Pulse 100 04/09/21 13:25 Resp 16 04/09/21 13:25 BP 156/89 04/09/21 13:25 Pulse Ox 90 L 04/09/21 13:25 Intake & Output 04/08/21 04/09/21 04/09/21 18:59 06:59 18:59 Intake Total 266.49 Balance 266.49 Weight 79.832 kg Intake: Intake, IV Titration 148.49 Amount Heparin Sod,Pork in 0.45% 148.49 NaCl 25,000 unit In 0.45 % NaCl 1 250ml.bag @ 12 UNITS/KG/HR 9.58 mls/hr IV .Q24H [facility] Rx#: [id number] Oral 118 Other: Voiding Method Toilet Toilet # Voids 2 4 # Bowel Movements 0 - Labs CBC & Chem 7: 04/09/21 04:27 04/09/21 04:27 Labs: Abnormal Lab Results - Last 24 Hours (Table) 04/08/21 04/08/21 04/09/21 Range/Units 15:30 20:00 04:27 WBC (4.50-10.00) X 10*3/uL RBC (4.10-5.20) X 10*6/uL Hgb (12.0-15.0) g/dL MCV (80.0-97.0) fL MCHC (32.0-37.0) g/dL RDW (11.5-14.5) % Plt Count (140-440) X 10*3/uL Plt Count Comment Lymphocytes # (0.90-5.00) X 10*3/uL PT 12.3 H (9.9-11.9) sec INR 1.12 H (0.90-1.11) APTT 61.1 H (22.0-30.0) sec Sodium (135-145) mmol/L Anion Gap (10.00-18.00) mmol/L Creatinine (0.6-1.5) mg/dL BUN/Creatinine Ratio (12.00-20.00) Ratio Total Bilirubin (0.30-1.20) mg/dL Total Protein (6.2-8.2) g/dL Albumin (3.8-4.9) g/dL Albumin/Globulin Ratio (1.60-3.17) g/dL Ur Specific [place] >1.050 H (1.001-1.035) Urine Protein 1+ H (Negative) Urine Ketones Trace H (Negative) Urine Mucus Moderate H (None) /hpf 04/09/21 04/09/21 04/09/21 Range/Units 04:27 04:27 06:28 WBC 3.59 L (4.50-10.00) X 10*3/uL RBC 3.76 L (4.10-5.20) X 10*6/uL Hgb 11.6 L (12.0-15.0) g/dL MCV 100.0 H (80.0-97.0) fL MCHC 30.9 L (32.0-37.0) g/dL RDW 15.5 H (11.5-14.5) % Plt Count 71 L (140-440) X 10*3/uL Plt Count Comment DECREASED A Lymphocytes # 0.45 L (0.90-5.00) X 10*3/uL PT (9.9-11.9) sec INR (0.90-1.11) APTT 37.7 H (22.0-30.0) sec Sodium 133 L (135-145) mmol/L Anion Gap 8.20 L (10.00-18.00) mmol/L Creatinine 0.5 L (0.6-1.5) mg/dL BUN/Creatinine Ratio 22.60 H (12.00-20.00) Ratio Total Bilirubin 1.60 H (0.30-1.20) mg/dL Total Protein 5.3 L (6.2-8.2) g/dL Albumin 2.8 L (3.8-4.9) g/dL Albumin/Globulin Ratio 1.12 L (1.60-3.17) g/dL Ur Specific [place] (1.001-1.035) Urine Protein (Negative) Urine Ketones (Negative) Urine Mucus (None) /hpf
--- NOTE | 2021-04-09 16:06 | P.CONS ---
History of Present Illness - Reason for Consult Consult date: 04/09/21 ascites Requesting physician: Urmila Lopez - Chief Complaint Abdominal pain and distention - History of Present Illness This is 60-year-old female with a past medical history of primary biliary cirrhosis diagnosed approximately 22 years ago, hyperlipidemia, history of rece nt hernia repair on 02/28/2021 done at [facility]. The patient follows with her liver specialist [facility]. States she was having worsening symptoms with her hernia and went for scheduled elective hernia repair on February 28. She was discharged home and began having abdominal pain. She was then readmitted and underwent an exploratory lap for bowel obstruction on March 30. Patient states she did not require any bowel resection at that time. She was then discharged a few days ago. She was feeling better and went home during her hospitalization she states that she had not been on any diuretics and restarted her Aldactone and her Lasix on Friday. Patient states she a few years back had ultrasound showing mild ascites and was started on diuretics at that time by her liver specialist. She denies any previous history of paracentesis. She had been noticing over the last few days increased abdominal distention and started having leaking of fluid from her abdominal incision. Gen. surgery Dr. Foss has been consulted and apparently spoke to the patient's surgeon. Plan is for paracentesis. The patient had a CT of the abdomen and also showed portal vein thrombosis and she was started on an IV heparin drip. Patient states she has been having moderate to large amount of fluid draining throughout the night. She's been afebrile. She denies any abdominal pain. She states that abdominal distention has been improving with the amount of fluid she's been losing. She's been afebrile. No evidence of leukocytosis. WBC 3.5 hemoglobin 11.6 platelet count 71,000 INR 1.1 total bilirubin 1.6 AST 28 ALT 17 alkaline phosphatase 105 Review of Systems REVIEW OF SYSTEMS: CARDIOPULMONARY: No chest pain or shortness of breath. Gastrointestinal: Abdominal distention. Recent abdominal surgery with fluid leaking from incision site. No nausea or vomiting. No hematemesis, coffee- ground emesis. No rectal bleeding, or melena. GENITOURINARY: No dysuria or hematuria. MUSCULOSKELETAL: Reports normal range of motion., Joint pain. SKIN: No rashes. No jaundice. ENDOCRINE: No chills, fevers. No excessive weight gain or loss. No polydipsia or polyuria. PSYCHIATRIC: Unremarkable. NEUROLOGY: No change in mental status. Denies dizziness, headache. ENT: Vision unremarkable. CONSTITUTIONAL: No recent weight loss. No fever, chills, night sweats. Past Medical History Past Medical History: Hyperlipidemia, Liver Disease Additional Past Medical History / Comment(s): primary biliary cirrhosis History of Any Multi-Drug Resistant Organisms: None Reported Past Surgical History: Hernia Repair, Hysterectomy, Orthopedic Surgery Additional Past Surgical History / Comment(s): R wrist, mat feet surgery Past Anesthesia/Blood Transfusion Reactions: No Reported Reaction Past Psychological History: No Psychological Hx Reported Smoking Status: Former smoker Past Alcohol Use History: None Reported Past Drug Use History: None Reported - Past Family History family Additional Family Medical History / Comment(s): No history of premature CAD Medications and Allergies Home Medications Medication Instructions Recorded Confirmed Type Carvedilol [Coreg] 6.25 mg PO HS 10/15/18 04/09/21 History Furosemide [Lasix] 40 mg PO BID 10/15/18 04/09/21 History Spironolactone [Aldactone] 100 mg PO BID 10/15/18 04/09/21 History ursodioL [Actigall] 600 mg PO BID 10/15/18 04/09/21 History Cephalexin [Keflex] 500 mg PO BID 04/08/21 04/08/21 History Allergies Allergy/AdvReac Type Severity Reaction Status Date / Time No Known Allergies Allergy Verified 04/08/21 15:10 Physical Exam Vitals: Vital Signs Temp Pulse Pulse Resp BP BP Pulse Ox 04/09/21 08:25 99 100/65 04/09/21 07:00 97.7 F 86 18 88/63 99 04/09/21 02:56 98.2 F 89 16 99/69 97 04/09/21 01:14 18 04/08/21 21:37 98.5 F 111 H 18 97/67 97 04/08/21 21:30 18 04/08/21 21:12 105 H 18 110/74 98 04/08/21 18:00 115 H 16 134/74 100 04/08/21 15:00 110 H 18 110/70 98 04/08/21 11:39 97.1 F L 129 H 18 104/72 96 Intake and Output 04/08/21 04/09/21 04/09/21 22:59 06:59 14:59 Intake Total 148.49 Balance 148.49 Intake: Intake, IV Titration 148.49 Amount Heparin Sod,Pork in 0.45% 148.49 NaCl 25,000 unit In 0.45 % NaCl 1 250ml.bag @ 12 UNITS/KG/HR 9.58 mls/hr IV .Q24H [facility] Rx#: [id number] Other: Voiding Method Toilet Toilet # Voids 1 2 Weight 79.832 kg General appearance: The patient is alert, oriented, appears in no acute distress. HET: Head is normocephalic and atraumatic. Conjunctiva pink. Sclera anicteric. Neck: Supple without lymphadenopathy. Trachea midline. Heart: S1 S2. Regular rate and rhythm. Lungs: Clear to auscultation. Abdomen: Soft, nontender, nondistended with bowel sounds. No guarding or rigidity. Abdominal incision mid abdomen with the distal aspect draining clear and serosanguineous drainage. Skin: No rashes. No jaundice. Extremities: Normal skin color and turgor. No pedal edema. Neurological: No focal deficits. Alert and oriented x3. Results CBC & Chem 7: 04/09/21 04:27 04/09/21 04:27 Labs: Abnormal Lab Results - Last 24 Hours (Table) 04/08/21 04/08/21 04/08/21 Range/Units 13:08 13:08 13:08 Plt Count 109 L (150-450) k/uL Lymphocytes # 0.5 L (1.0-4.8) k/uL PT (9.9-11.9) sec INR 1.2 H (<1.2) APTT (22.0-30.0) sec Sodium 131 L (137-145) mmol/L Chloride 97 L (98-107) mmol/L Anion Gap (10.00-18.00) mmol/L Creatinine 0.44 L (0.52-1.04) mg/dL BUN/Creatinine Ratio (12.00-20.00) Ratio Glucose 137 H (74-99) mg/dL Total Bilirubin 3.0 H (0.2-1.3) mg/dL AST 41 H (14-36) U/L Total Protein (6.2-8.2) g/dL Albumin 3.0 L (3.5-5.0) g/dL Albumin/Globulin Ratio (1.60-3.17) g/dL Amylase <30 L (30-110) U/L Ur Specific [place] (1.001-1.035) Urine Protein (Negative) Urine Ketones (Negative) Urine Mucus (None) /hpf 04/08/21 04/08/21 04/09/21 Range/Units 15:30 20:00 04:27 Plt Count (150-450) k/uL Lymphocytes # (1.0-4.8) k/uL PT 12.3 H (9.9-11.9) sec INR 1.12 H (<1.2) APTT 61.1 H (22.0-30.0) sec Sodium (137-145) mmol/L Chloride (98-107) mmol/L Anion Gap (10.00-18.00) mmol/L Creatinine (0.52-1.04) mg/dL BUN/Creatinine Ratio (12.00-20.00) Ratio Glucose (74-99) mg/dL Total Bilirubin (0.2-1.3) mg/dL AST (14-36) U/L Total Protein (6.2-8.2) g/dL Albumin (3.5-5.0) g/dL Albumin/Globulin Ratio (1.60-3.17) g/dL Amylase (30-110) U/L Ur Specific [place] >1.050 H (1.001-1.035) Urine Protein 1+ H (Negative) Urine Ketones Trace H (Negative) Urine Mucus Moderate H (None) /hpf 04/09/21 04/09/21 Range/Units 04:27 06:28 Plt Count (150-450) k/uL Lymphocytes # (1.0-4.8) k/uL PT (9.9-11.9) sec INR (<1.2) APTT 37.7 H (22.0-30.0) sec Sodium 133 L (137-145) mmol/L Chloride (98-107) mmol/L Anion Gap 8.20 L (10.00-18.00) mmol/L Creatinine 0.5 L (0.52-1.04) mg/dL BUN/Creatinine Ratio 22.60 H (12.00-20.00) Ratio Glucose (74-99) mg/dL Total Bilirubin 1.60 H (0.2-1.3) mg/dL AST (14-36) U/L Total Protein 5.3 L (6.2-8.2) g/dL Albumin 2.8 L (3.5-5.0) g/dL Albumin/Globulin Ratio 1.12 L (1.60-3.17) g/dL Amylase (30-110) U/L Ur Specific [place] (1.001-1.035) Urine Protein (Negative) Urine Ketones (Negative) Urine Mucus (None) /hpf CT scan - abdomen: report reviewed (Splenomegaly and changes in the liver consistent with cirrhosis. Moderate amount of abdominal ascites. Evidence for some chronic portal vein thrombosis with complete thrombosis of the portal vein and superior mesenteric vein. Splenic varices. Ascites new compared to old exam.) Assessment and Plan (1) Ascites Narrative/Plan: This 60-year-old female with a history of primary biliary cirrhosis diagnosed approximately 22 years ago who calls with [facility]. Patient recently underwent hernia repair March 27 followed by bowel obstruction for which she underwent exploratory lap March 30 again at [facility]. She was discharged home however at that time states she did have some abdominal distention however states nobody seemed concerned. During her hospitalization she states she had not been on her diuretics but has been on diuretics for some time now related to ascites. She denies any previous paracentesis in the past. And states that her ascites has been controlled with her diuretics. She states that she takes 40 mg of Lasix twice a day and Aldactone 100 mg daily apparently she was having some abdominal discomfort and distention and contacted her surge on who told her to go to the emergency room for evaluation. She's been having clear and serosanguineous drainage from her incision site for the last 2-3 days duration. She's been afebrile and no evidence of leukocytosis. She had a CT of the abdomen and pelvis that did show moderate amount of ascites as well as a portal vein thrombosis. She was started on IV heparin drip. Gen. surgery is on consult as well. Plan as for paracentesis. Current Visit: Yes Status: Acute Code(s): R18.8 - OTHER ASCITES SNOMED Code(s): 320878816 (2) Primary biliary cirrhosis Current Visit: Yes Status: Acute Code(s): K74.3 - PRIMARY BILIARY CIRRHOSIS SNOMED Code(s): 59098963 (3) Portal vein thrombosis Current Visit: Yes Status: Acute Code(s): I81 - PORTAL VEIN THROMBOSIS SNOMED Code(s): 87743036 Plan: 1. Continue symptomatic and supportive care 2. Agree with paracentesis 3. Continue currently with Lasix 40 mg every 8 hours and Aldactone 100 mg daily 4. Continue with recommendations from surgical services 5. Patient to follow-up with liver specialist at [facility] on discharge. Thank you for this consultation, we will continue to follow. Dr. Cesar Best I agree with the dictator's note, documented as a scribe by Teresa Govea.
[2021-04-09] MEDS: HEPARIN SOD,PORK IN 0.45% NACL 25,000 UNIT in 0.45% NACL 1 250ML.BAG IV SCH (19:51)
--- NOTE | 2021-04-09 22:48 | P.CONS ---
History of Present Illness - Reason for Consult Consult date: 04/09/21 peritonitis Requesting physician: Urmila Lopez - Chief Complaint abdominal distension x few days - History of Present Illness History of present illness : Patient is 60-year-old female with a past medical history significant for biliary cirrhosis in this patient apparently did have ascites that was controlled with diuretic therapy patient was recently admitted at [facility] with initial surgery for a incisional hernia subsequently patient did have a small bowel obstruction requiring laparotomy and release of small bowel obstruction on March 30 patient mention there was no evidence of any perforation she was discharged on April 03 patient is presenting to the [facility] ER for evaluation of increasing abdominal distention that apparently has been getting worse since her surgery and leakage of clear fluid from the inferior portion of the abdominal wound patient denies having any fever or any chills denies having any nausea or vomiting or no diarrhea on presentation to the hospital the patient was afebrile patient did have a normal white count this morning the patient slightly leukopenic did have a normal creatinine AST was mildly elevated urine is negative ramirez PCR was negative patient did have a CT of abdominal pelvis splenomegaly and changes in the liver consistent with cirrhosis moderate amount of abdominal ascites evidence of chronic portal 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 EYES: No complaint. ENT: No complaint. RESPIRATORY: No complaint. CARDIOVASCULAR: No complaint. GENITOURINARY: No complaint. GASTROINTESTINAL: As per history of present illness. MUSCULOSKELETAL: No complaint. INTEGUMENTARY: No complaint. PSYCHOLOGIC: No complaint. ENDOCRINE: No complaint. NEUROLOGIC: No complaint. Past medical history : Reviewed, documented below Past surgical history : Reviewed, documented below Social history: Reviewed, documented below Medications: Reviewed, as documented below EXAMINATION: Vital sigans= Reviewed and documented below GENERAL DESCRIPTION: Middle-aged female lying in bed, no distress. No tachypnea or accessory muscle of respiration use. HEENT: Shows Pallor , no scleral icterus. Oral mucous membrane is dry. NECK: Trachea central, no thyromegaly. LUNGS: Unlabored breathing. Clear to auscultation anteriorly. No wheeze or crackle. HEART: S1, S2, regular rate and rhythm. ABDOMEN: Soft, abdominal distention with clear fluid from the left lower quadrant area no tenderness , guarding or rigidity EXTREMITIES: No edema of feet. SKIN: No rash, no masses palpable. NEUROLOGICAL: The patient is awake, alert, oriented x3, mood and affect normal. LABS AND RADIOLOGY: Reviewed results see below Assessment : Patient presented to hospital with abdominal distention in this patient who did have a history of primary biliary cirrhosis and was previously controlled with the diuretics with recent 2 abdominal surgery last one was for a small bowel release however mention of the evidence of any perforation and there was no resection of the small bowel patient is currently not running fever did not have elevated white count clinic suspicious low for peritonitis Plan: 1-we will wait for the paracentesis and the fluid should be sent for cell count differential Gram stain and culture 2-continue the empiric Rocephin at this point We will follow on clinical condition and cultures to further adjust medication if needed Thank you for this consultation we will follow the patient along with you Past Medical History Past Medical History: Hyperlipidemia, Liver Disease Additional Past Medical History / Comment(s): primary biliary cirrhosis History of Any Multi-Drug Resistant Organisms: None Reported Past Surgical History: Hernia Repair, Hysterectomy, Orthopedic Surgery Additional Past Surgical History / Comment(s): R wrist, mat feet surgery Past Anesthesia/Blood Transfusion Reactions: No Reported Reaction Past Psychological History: No Psychological Hx Reported Smoking Status: Former smoker Past Alcohol Use History: None Reported Past Drug Use History: None Reported - Past Family History family Additional Family Medical History / Comment(s): No history of premature CAD Medications and Allergies Home Medications Medication Instructions Recorded Confirmed Type Carvedilol [Coreg] 6.25 mg PO HS 10/15/18 04/09/21 History Furosemide [Lasix] 40 mg PO BID 10/15/18 04/09/21 History Spironolactone [Aldactone] 100 mg PO BID 10/15/18 04/09/21 History ursodioL [Actigall] 600 mg PO BID 10/15/18 04/09/21 History Cephalexin [Keflex] 500 mg PO BID 04/08/21 04/08/21 History Allergies Allergy/AdvReac Type Severity Reaction Status Date / Time No Known Allergies Allergy Verified 04/08/21 15:10 Physical Exam Vitals: Vital Signs Temp Pulse Pulse Resp BP BP Pulse Ox 04/09/21 08:25 99 100/65 04/09/21 07:00 97.7 F 86 18 88/63 99 04/09/21 02:56 98.2 F 89 16 99/69 97 04/09/21 01:14 18 04/08/21 21:37 98.5 F 111 H 18 97/67 97 04/08/21 21:30 18 04/08/21 21:12 105 H 18 110/74 98 04/08/21 18:00 115 H 16 134/74 100 04/08/21 15:00 110 H 18 110/70 98 Intake and Output 04/08/21 04/09/21 04/09/21 22:59 06:59 14:59 Intake Total 148.49 Balance 148.49 Intake: Intake, IV Titration 148.49 Amount Heparin Sod,Pork in 0.45% 148.49 NaCl 25,000 unit In 0.45 % NaCl 1 250ml.bag @ 12 UNITS/KG/HR 9.58 mls/hr IV .Q24H [facility] Rx#: [id number] Other: Voiding Method Toilet Toilet # Voids 1 2 Weight 79.832 kg Results CBC & Chem 7: 04/09/21 04:27 04/09/21 04:27 Labs: Abnormal Lab Results - Last 24 Hours (Table) 04/08/21 04/08/21 04/08/21 Range/Units 13:08 13:08 13:08 WBC (4.50-10.00) X 10*3/uL RBC (4.10-5.20) X 10*6/uL Hgb (12.0-15.0) g/dL MCV (80.0-97.0) fL MCHC (32.0-37.0) g/dL RDW (11.5-14.5) % Plt Count 109 L (150-450) k/uL Plt Count Comment Lymphocytes # 0.5 L (1.0-4.8) k/uL PT (9.9-11.9) sec INR 1.2 H (<1.2) APTT (22.0-30.0) sec Sodium 131 L (137-145) mmol/L Chloride 97 L (98-107) mmol/L Anion Gap (10.00-18.00) mmol/L Creatinine 0.44 L (0.52-1.04) mg/dL BUN/Creatinine Ratio (12.00-20.00) Ratio Glucose 137 H (74-99) mg/dL Total Bilirubin 3.0 H (0.2-1.3) mg/dL AST 41 H (14-36) U/L Total Protein (6.2-8.2) g/dL Albumin 3.0 L (3.5-5.0) g/dL Albumin/Globulin Ratio (1.60-3.17) g/dL Amylase <30 L (30-110) U/L Ur Specific [place] (1.001-1.035) Urine Protein (Negative) Urine Ketones (Negative) Urine Mucus (None) /hpf 04/08/21 04/08/21 04/09/21 Range/Units 15:30 20:00 04:27 WBC (4.50-10.00) X 10*3/uL RBC (4.10-5.20) X 10*6/uL Hgb (12.0-15.0) g/dL MCV (80.0-97.0) fL MCHC (32.0-37.0) g/dL RDW (11.5-14.5) % Plt Count (150-450) k/uL Plt Count Comment Lymphocytes # (1.0-4.8) k/uL PT 12.3 H (9.9-11.9) sec INR 1.12 H (<1.2) APTT 61.1 H (22.0-30.0) sec Sodium (137-145) mmol/L Chloride (98-107) mmol/L Anion Gap (10.00-18.00) mmol/L Creatinine (0.52-1.04) mg/dL BUN/Creatinine Ratio (12.00-20.00) Ratio Glucose (74-99) mg/dL Total Bilirubin (0.2-1.3) mg/dL AST (14-36) U/L Total Protein (6.2-8.2) g/dL Albumin (3.5-5.0) g/dL Albumin/Globulin Ratio (1.60-3.17) g/dL Amylase (30-110) U/L Ur Specific [place] >1.050 H (1.001-1.035) Urine Protein 1+ H (Negative) Urine Ketones Trace H (Negative) Urine Mucus Moderate H (None) /hpf 04/09/21 04/09/21 04/09/21 Range/Units 04:27 04:27 06:28 WBC 3.59 L (4.50-10.00) X 10*3/uL RBC 3.76 L (4.10-5.20) X 10*6/uL Hgb 11.6 L (12.0-15.0) g/dL MCV 100.0 H (80.0-97.0) fL MCHC 30.9 L (32.0-37.0) g/dL RDW 15.5 H (11.5-14.5) % Plt Count 71 L (150-450) k/uL Plt Count Comment DECREASED A Lymphocytes # 0.45 L (1.0-4.8) k/uL PT (9.9-11.9) sec INR (<1.2) APTT 37.7 H (22.0-30.0) sec Sodium 133 L (137-145) mmol/L Chloride (98-107) mmol/L Anion Gap 8.20 L (10.00-18.00) mmol/L Creatinine 0.5 L (0.52-1.04) mg/dL BUN/Creatinine Ratio 22.60 H (12.00-20.00) Ratio Glucose (74-99) mg/dL Total Bilirubin 1.60 H (0.2-1.3) mg/dL AST (14-36) U/L Total Protein 5.3 L (6.2-8.2) g/dL Albumin 2.8 L (3.5-5.0) g/dL Albumin/Globulin Ratio 1.12 L (1.60-3.17) g/dL Amylase (30-110) U/L Ur Specific [place] (1.001-1.035) Urine Protein (Negative) Urine Ketones (Negative) Urine Mucus (None) /hpf
[2021-04-10] MEDS: carvediloL 6.25 MG TAB PO SCH ×2 (03:50→21:16)
[2021-04-10] MEDS: FUROSEMIDE 10 MG/ML 4 ML VIAL IV SCH ×3 (07:42→21:10)
[2021-04-10] MEDS: SPIRONOLACTONE 25 MG TAB PO SCH (07:42)
[2021-04-10] MEDS: PANTOPRAZOLE 40 MG/10 ML VIAL IVP SCH ×2 (07:42→21:09)
--- NOTE | 2021-04-10 11:31 | US ---
Discontinued paracentesis HISTORY: Ascites Correlation to CT scan 04/08/2021 Limited scanning was performed in the abdomen. Scanning performed for procedure planning shows no significant pocket of fluid, there i has been interval improvement compared to prior CT IMPRESSION: Discontinued paracentesis, no fluid identified
--- NOTE | 2021-04-10 12:17 | P.PN ---
Subjective Progress Note Date: 04/10/21 Principal diagnosis: Ascites This is 60-year-old female with a history of primary biliary cirrhosis diagnosed approximately 22 years ago and follows with [facility]. recently had hernia surgery in the beginning of February was discharged home having abdominal pain and distention brought back in and had an exploratory lap for bowel obstruction on 03/30/2021. She was discharged home however states that during that hospitalization she was having some abdominal distention at that time but was discharged. She said during her hospitalization she was not on any diuretics and started retaking them last week . She was on them for about 3 days however continued to have abdominal distention now with fluid draining from her abdominal incision therefore called her surgeon who told her to go to the emergency room for further evaluation. Patient was having copious amounts of serous and serosanguineous drainage from the incision site. They had placed an ostomy bag on yesterday and they were attempting to to 400 mL every hour to 2 hours. Today nursing is reporting scant amount of fluid from the incision. Today she was scheduled to undergo paracentesis on the however ultrasound was obtained there was no fluid. Denies any abdominal pain, fever, chills, nausea or vomiting. Gen. surgery is on consult with consideration of possible suturing of incision and has been in contact with the patient's surgeon from [facility]. Objective - Vital Signs Vital signs: Vital Signs Temp 98.2 F 04/10/21 07:00 Pulse 92 04/10/21 07:00 Resp 18 04/10/21 07:00 BP 92/63 04/10/21 07:00 Pulse Ox 95 04/10/21 07:00 Intake & Output 04/09/21 04/10/21 04/10/21 18:59 06:59 18:59 Intake Total 486.000 136.033 Balance 486.000 136.033 Intake: Intake, IV Titration 250.000 136.033 Amount Heparin Sod,Pork in 0.45% 250.000 136.033 NaCl 25,000 unit In 0.45 % NaCl 1 250ml.bag @ 12 UNITS/KG/HR 9.58 mls/hr IV .Q24H [facility] Rx#: [id number] Oral 236 Other: Voiding Method Toilet # Voids 4 3 # Bowel Movements 0 - Exam General appearance: The patient is alert, oriented, appears in no acute distress. HET: Head is normocephalic and atraumatic. Conjunctiva pink. Sclera anicteric. Neck: Supple without lymphadenopathy. Abdomen: Soft, nontender, nondistended with bowel sounds. No guarding or rigidity. Abdominal incision minimal drainage. Extremities: Normal skin color and turgor. No pedal edema Skin: No rashes, no jaundice Neurological: No focal deficits. Alert and oriented x3. - Labs CBC & Chem 7: 04/09/21 04:27 04/09/21 04:27 Labs: Abnormal Lab Results - Last 24 Hours (Table) 04/09/21 04/09/21 04/09/21 Range/Units 04:27 14:55 21:45 WBC 3.59 L (4.50-10.00) X 10*3/uL RBC 3.76 L (4.10-5.20) X 10*6/uL Hgb 11.6 L (12.0-15.0) g/dL MCV 100.0 H (80.0-97.0) fL MCHC 30.9 L (32.0-37.0) g/dL RDW 15.5 H (11.5-14.5) % Plt Count 71 L (140-440) X 10*3/uL Plt Count Comment DECREASED A Lymphocytes # 0.45 L (0.90-5.00) X 10*3/uL APTT 41.6 H 58.8 H (22.0-30.0) sec Microbiology - Last 24 Hours (Table) 04/09/21 20:07 Urine Culture - Preliminary Urine,Voided 04/08/21 20:00 Blood Culture - Preliminary Blood No Growth after 24 hours Assessment and Plan (1) Ascites Narrative/Plan: This 60-year-old female with a history of primary biliary cirrhosis diagnosed approximately 22 years ago who calls with [facility]. Patient recently underwent hernia repair March 27 followed by bowel obstruction for which she underwent exploratory lap March 30 again at [facility]. She was discharged home however at that time states she did have some abdominal distention however states nobody seemed concerned. During her hospitalization she states she had not been on her diuretics but has been on diuretics for some time now related to ascites. She denies any previous paracentesis in the past. And states that her ascites has been controlled with her diuretics. She states that she takes 40 mg of Lasix twice a day and Aldactone 100 mg daily apparently she was having some abdominal discomfort and distention and contacted her surgeon who told her to go to the emergency room for evaluation. She's been having clear and serosanguineous drainage from her incision site for the last 2- 3 days duration. She's been afebrile and no evidence of leukocytosis. She had a CT of the abdomen and pelvis that did show moderate amount of ascites as well as a portal vein thrombosis. She was started on IV heparin drip. Gen. surgery is on consult as well. Plan as for paracentesis. Patient was scheduled for paracentesis today. However patient did go down and ultrasound was obtained and she no longer had any ascites present. Patient had copious amounts of drainage yesterday from her abdominal wall incision. Nursing and patient reports small to scant amount of drainage at this point in time. Current Visit: Yes Status: Acute Code(s): R18.8 - OTHER ASCITES SNOMED Code(s): 649956276 (2) Primary biliary cirrhosis Current Visit: Yes Status: Acute Code(s): K74.3 - PRIMARY BILIARY CIRRHOSIS SNOMED Code(s): 58224071 (3) Portal vein thrombosis Current Visit: Yes Status: Acute Code(s): I81 - PORTAL VEIN THROMBOSIS SNOMED Code(s): 49430420 Plan: 1. Continue symptomatic and supportive care 2. Recommend discharge on Lasix 40 mg twice a day and Aldactone 100 mg daily 3. Continue with recommendations from surgical services 4. Patient to follow-up with liver specialist at [facility] on discharge. Thank you for this consultation, we will continue to follow. Dr. Cesar Best I agree with the dictator's note, documented as a scribe by Teresa Govea.
[2021-04-10] MEDS: HEPARIN SODIUM 1,000 UN/ML (10ML VL) IV PRN (12:50)
--- NOTE | 2021-04-10 13:09 | P.PN ---
Subjective Progress Note Date: 04/10/21 Patient seen and examined at bedside. Ascites leakage has decreased significantly since yesterday. Patient did have a paracentesis attempted by radiology, however there was not enough fluid to perform a paracentesis. Patient states that after beginning diuretics, she has increased urinary output. She denies any abdominal pain. Objective - Vital Signs Vital signs: Vital Signs Temp 98 F 04/10/21 11:50 Pulse 113 H 04/10/21 11:50 Resp 18 04/10/21 11:50 BP 95/66 04/10/21 11:50 Pulse Ox 95 04/10/21 11:50 Intake & Output 04/09/21 04/10/21 04/10/21 18:59 06:59 18:59 Intake Total 486.000 136.033 23.843 Balance 486.000 136.033 23.843 Intake: Intake, IV Titration 250.000 136.033 23.843 Amount Heparin Sod,Pork in 0.45% 250.000 136.033 23.843 NaCl 25,000 unit In 0.45 % NaCl 1 250ml.bag @ 12 UNITS/KG/HR 9.58 mls/hr IV .Q24H [facility] Rx#: [id number] Oral 236 Other: Voiding Method Toilet # Voids 4 3 # Bowel Movements 0 - Constitutional General appearance: Present: cooperative, no acute distress - Respiratory Details: No difficulty with respiration - Gastrointestinal Gastrointestinal Comment(s): Soft, nontender, midline incision with no significant ascites drainage, mild distention, no rebound, no guarding - Labs CBC & Chem 7: 04/09/21 04:27 04/09/21 04:27 Labs: Abnormal Lab Results - Last 24 Hours (Table) 04/09/21 04/09/21 Range/Units 14:55 21:45 APTT 41.6 H 58.8 H (22.0-30.0) sec Microbiology - Last 24 Hours (Table) 04/09/21 20:07 Urine Culture - Preliminary Urine,Voided 04/08/21 20:00 Blood Culture - Preliminary Blood No Growth after 24 hours Assessment and Plan Plan: 04/09 60-year-old female with history of primary biliary cirrhosis and ascites draining from recent surgical wound. Case was discussed with the patient's hepatobiliary surgeon, Dr. Hany Sheridan, at the [facility] where she h ad her previous procedures performed.We are unable to transfer the patient to his service based on the current Covid pandemic and no bed availability having shortages. At this time, he agrees with the plan for diuresis and therapeutic paracentesis along with likely suturing of the incision site with 2-0 nylon suture and application of skin glue. Additionally, we will await GI recommendations. This is likely secondary to mild decompensation of the liver after multiple procedures in the last month or so. 04/10 The patient has had a significant decrease in the amount of ascites draining from the midline incision. Case was discussed with her hepatobiliary surgeon at the [facility] and plan for diuresis and paracentesis was agreed upon. Paracentesis was attempted today, however there was not enough fluid to perform. Patient was offered suturing of the midline incision as recommended by her hepatobiliary surgeon, however due to the decrease of ascites leakage, the patient prefers to not have this performed at this time. We will continue with diuresis. No plan for acute surgical intervention. We'll continue to follow and provide recommendations based on the patient's clinical progress.
--- NOTE | 2021-04-10 15:01 | PN ---
PROGRESS NOTE DATE OF SERVICE: 04/10/2021 REASON FOR FOLLOWUP: Possible bacterial peritonitis. INTERVAL HISTORY: The patient is afebrile. The patient is currently breathing comfortably. The patient's abdominal distention has slightly decreased. Mild discomfort. No chest pain, shortness of breath or cough and no diarrhea. PHYSICAL EXAMINATION: Her blood pressure is 95/66, pulse of 130, temperature 98. She is 95% on room air. General description is a middle-aged female in the bed in no distress. Respiratory system: Unlabored breathing, decreased intensity of breath sounds. No wheeze. Heart S1, S2. Regular rate and rhythm. Abdomen soft, no guarding. No rigidity. LABS: No new labs have been obtained today. DIAGNOSTIC IMPRESSION AND PLAN: Patient admitted to the hospital with abdominal distention concerning for ascites in this patient who does have history of . Ultrasound did not show significant fluid collection. has been still not behaving as SBP with no fever or elevated white counts. Antibiotic can be safely discontinued. Continue supportive care. MMODL / IJN: [id number] /
[2021-04-10] MEDS: HEPARIN SOD,PORK IN 0.45% NACL 25,000 UNIT in 0.45% NACL 1 250ML.BAG IV SCH (16:15)
--- NOTE | 2021-04-10 19:02 | P.CONS ---
History of Present Illness - Reason for Consult Consult date: 04/10/21 portal vein thrombosis, anticoagulation recs Requesting physician: Gilda Rm - Chief Complaint ascites - History of Present Illness Pt is a very pleasant 60 year old female who was diagnosed with primary biliary cirrhosis 23 years ago and is followed at [facility]. She hernia repair with mesh 02/26, went back to work at the end of the month. She experienced severe N,V, was seen at [facility] and found to have bowel entanglement in mesh. She was taken to [facility] and had bowel surgery to correct problem and was sent home-about 03/05. She had continuous leakage from the incision and persistent/progressive abd distension and was instructed to come to hospital. She had imaging that incidentally showed portal vein thrombosis, which is why we have been asked to see pt. Pt report chronic thrombocytopenia 2/2 liver disease. She is on heparin drip, no bleeding to report. Review of Systems 10 point ROS is neg except as stated in HPI Past Medical History Past Medical History: Hyperlipidemia, Liver Disease Additional Past Medical History / Comment(s): primary biliary cirrhosis History of Any Multi-Drug Resistant Organisms: None Reported Past Surgical History: Hernia Repair, Hysterectomy, Orthopedic Surgery Additional Past Surgical History / Comment(s): R wrist, mat feet surgery Past Anesthesia/Blood Transfusion Reactions: No Reported Reaction Past Psychological History: No Psychological Hx Reported Smoking Status: Former smoker Past Alcohol Use History: None Reported Past Drug Use History: None Reported - Past Family History family Additional Family Medical History / Comment(s): No history of premature CAD Medications and Allergies Home Medications Medication Instructions Recorded Confirmed Type Carvedilol [Coreg] 6.25 mg PO HS 10/15/18 04/09/21 History Furosemide [Lasix] 40 mg PO BID 10/15/18 04/09/21 History Spironolactone [Aldactone] 100 mg PO BID 10/15/18 04/09/21 History ursodioL [Actigall] 600 mg PO BID 10/15/18 04/09/21 History Cephalexin [Keflex] 500 mg PO BID 04/08/21 04/08/21 History Allergies Allergy/AdvReac Type Severity Reaction Status Date / Time No Known Allergies Allergy Verified 04/08/21 15:10 Physical Exam Vitals: Vital Signs Temp Pulse Resp BP Pulse Ox 04/10/21 14:00 97.8 F 108 H 18 91/64 98 04/10/21 11:50 98 F 113 H 18 95/66 95 04/10/21 10:15 107 H 16 99/64 96 04/10/21 07:00 98.2 F 92 18 92/63 95 04/10/21 02:00 98.2 F 101 H 18 92/66 94 L 04/09/21 20:00 98.2 F 102 H 18 94/64 94 L Intake and Output 04/10/21 04/10/21 04/10/21 06:59 14:59 22:59 Intake Total 100.907 23.843 51.571 Balance 100.907 23.843 51.571 Intake: Intake, IV Titration 100.907 23.843 51.571 Amount Heparin Sod,Pork in 0.45% 100.907 23.843 51.571 NaCl 25,000 unit In 0.45 % NaCl 1 250ml.bag @ 12 UNITS/KG/HR 9.58 mls/hr IV .Q24H [facility] Rx#: [id number] Other: Voiding Method Toilet # Voids 3 2 - Constitutional General appearance: average body habitus, cooperative, no acute distress - EENT Eyes: anicteric sclerae, EOMI ENT: hearing grossly normal, normal oropharynx - Respiratory Respiratory: bilateral: CTA - Cardiovascular Rhythm: regular Heart sounds: normal: S1, S2 Abnormal Heart Sounds: no systolic murmur, no diastolic murmur, no rub, no S3 Gallop, no S4 Gallop, no click, no other leg Peripheral Edema: bilateral: None - Gastrointestinal General gastrointestinal: distended, soft - Neurologic Neurologic: CNII-XII intact - Musculoskeletal Musculoskeletal: strength equal bilaterally - Psychiatric Psychiatric: A&O x's 3, appropriate affect, intact judgment & insight Results CBC & Chem 7: 04/09/21 04:27 04/09/21 04:27 Labs: Abnormal Lab Results - Last 24 Hours (Table) 04/09/21 Range/Units 21:45 APTT 58.8 H (22.0-30.0) sec Microbiology - Last 24 Hours (Table) 04/09/21 20:07 Urine Culture - Preliminary Urine,Voided 04/08/21 20:00 Blood Culture - Preliminary Blood No Growth after [address] scan - abdomen: report reviewed CT scan - pelvis: report reviewed Assessment and Plan (1) Portal vein thrombosis Narrative/Plan: Attending PRINTMAKER did discuss case with Sanitary Engineer. Plan is for daily treatment dose lovenox and f/u with them in the next 4 weeks Have put in order for wt in AM for dosing. Will send lovenox Rx in AM after wt documented. Current Visit: Yes Status: Acute Priority: High Code(s): I81 - PORTAL VEIN THROMBOSIS SNOMED Code(s): 90853649 (2) Thrombocytopenia Narrative/Plan: Pt has known, chronic low plt 2/2 liver disease. She is not aware that her plt have ever been below 50,000. Advised close monitoring of plt counts while awaiting follow up with Hepatology. She verbalized understanding Current Visit: Yes Status: Chronic Priority: Medium Code(s): D69.6 - THROMBOCYTOPENIA, UNSPECIFIED SNOMED Code(s): 295469576
--- NOTE | 2021-04-11 01:59 | P.PN ---
Subjective Progress Note Date: 04/10/21 This is a pleasant 60-year-old female who was recently admitted with increasing abdominal distention and some leaking from previous surgical site from March 30 and was recently discharged on April 03 from [facility]. Patient follows with Dr. Hany Sheridan out of [facility] and c onversation is being discussed as there are no beds available to transfer to [facility]. Patient had surgery consult along with GI for possible paracentesis and surgical intervention to this leaking site on the abdomen and patient reluctant to proceed with paracentesis until all medical consultations have discussed with Dr. sheridan treatment plan moving forward. General surgery Dr. Foss following and did discuss the case with the [facility] and GI consult is pending. 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 Patient is maintained on IV heparin will need to be held prior to paracentesis. A she to continue with IV Lasix twice daily along with oral Aldactone and patient also continues on IV ceftriaxone. Infectious disease also consulted and pending. 04/10/2021 Patient is seen and evaluated in follow up this morning and status post paracentesis. Patient was told by interventional radiology that there is not enough fluid to perform the paracentesis and procedure was cancelled. Surgery made aware. Patient continues with abdominal leak and currently has an ostomy bag at the abdominal site and draining has decreased in volume per patient and staff field engineer and will monitor overnight with possible stitch and surgical glue to the site per the recommendations of her electric fan assembler Dr. Sheridan. Also discussed with Dr. Sheridan from of about anticoagulation as patient remains on IV heparin for portal vein thrombosis which Dr. Sheridan also feels has not changed and appears chronic. Recommending subcutaneous lovenox for three months with follow up imaging in the outpatient setting at that time. Patient is agreeable with this and will repeat am labs and monitor output. Patient is continued on IV lasix and aldactone and will continue. Patient also continues on IV ceftriaxone while awaiting urine cultures. Will consult hematology and appreciate their in put and recommendations. Review of systems: Constitutional: No reports of fatigue, fever, or chills Cardiovascular: No reports of chest pain or palpitations Respiratory: No reports of shortness of breath or cough GI: No reports of nausea, vomiting, or diarrhea, reports abdominal distention and some tenderness with continued leaking at the recent surgical site, although has lessened in volume of output : No reports of dysuria or retention Neurovascular: No reports of weakness or numbness All medications have been reviewed Active Medications Carvedilol (Carvedilol 6.25 Mg Tab) 6.25 mg PO HS [facility] Last Admin: 04/10/21 03:50 Dose: Not Given Documented by: Furosemide (Furosemide 10 Mg/Ml 4 Ml Vial) 40 mg IV Q8HR [facility] Last Admin: 04/10/21 07:42 Dose: 40 mg Documented by: Heparin Sodium (Porcine) (Heparin Sodium 1,000 Un/Ml (10ml Vl)) 0 unit IV PER PROTOCOL PRN; Protocol PRN Reason: Low PTT Last Admin: 04/10/21 12:50 Dose: 3,999 unit Documented by: Heparin Sodium/Sodium Chloride (25,000 unit/ Sodium Chloride) 250 mls @ 9.58 mls/hr IV .Q24H [facility]; Protocol Last Titration: 04/10/21 12:51 Dose: 19 units/kg/hr, 15.168 mls/hr Documented by: Ceftriaxone Sodium 1 gm/ (Sodium Chloride) 50 mls @ 100 mls/hr IVPB Q24HR [facility] Last Admin: 04/10/21 07:41 Dose: 100 mls/hr Documented by: Morphine Sulfate (Morphine Sulfate 4 Mg/Ml Syringe) 4 mg IV Q4HR PRN PRN Reason: Severe Pain Last Admin: 04/08/21 20:11 Dose: 4 mg Documented by: Naloxone HCl (Naloxone 0.4 Mg/Ml 1 Ml Vial) 0.2 mg IV Q2M PRN PRN Reason: Opioid Reversal Ondansetron HCl (Ondansetron 4 Mg/2 Ml Vial) 4 mg IVP Q8HR PRN PRN Reason: Nausea And Vomiting Last Admin: 04/08/21 22:18 Dose: 4 mg Documented by: Pantoprazole Sodium (Pantoprazole 40 Mg/10 Ml Vial) 40 mg IVP BID [facility] Last Admin: 04/10/21 07:42 Dose: 40 mg Documented by: Spironolactone (Spironolactone 25 Mg Tab) 100 mg PO DAILY [facility] Last Admin: 04/10/21 07:42 Dose: 100 mg Documented by: Physical exam: Gen: This is a 60-year-old female awake, alert and oriented 3, well-developed, well-nourished. Temp is 98.2F, pulse is 92, respirations are 18, blood pressure is 92/63, oxygen saturation is 95% on room air HEENT: Head is atraumatic, normocephalic. Pupils equal, round. Sclerae is anicteric. NECK: Supple. No JVD. No lymphadenopathy. No thyromegaly. LUNGS: Diminished breath sounds bilaterally with no wheezing or rhonchi noted. No intercostal retractions. HEART: S1, S2 are muffled ABDOMEN: Soft. Distended. Bowel sounds are present. No masses. No tenderness. ostomy bag noted for drainage collection EXTREMITIES: No pedal edema. No calf tenderness. NEUROLOGICAL: Patient is awake, alert and oriented x3. Cranial nerves 2 through 12 are grossly intact. Assessment: Abdominal ascites as well as leaking from the surgical site, possibly secondary to cirrhosis of the liver History of recent surgery for small bowel obstruction as well as hiatal hernia 2 at the [facility] Possible acute on chronic portal vein thrombosis History of primary biliary cirrhosis Hyperlipidemia history of hernia repair History of hysterectomy history of degenerative joint disease remote history of nicotine dependence Full code Plan: Recommend to continue with current medications and management. Patient is maintained on IV Lasix and Aldactone. Gen. surgery Dr. Foss following closely along with GI and infectious disease. Patient is maintained on IV ceftriaxone and will continue. Plan was for paracentesis with fluid analysis today although IR reported that there was an insufficient amount of fluid to drain or obtain specimen and procedure was cancelled. Dr. Foss has discussed with Dr. sheridan out of [facility] who is the patient's provider for recent surgeries. W ill monitor drainage overnight with the possibility of placing a stitch if leaking persists. Patient maintained on IV heparin and will resume and consult hematology and appreciate anticoagulation recommendations. Dr. Sheridan recommends subcut lovenox for three months and outpatient follow up with repeat imaging after 3 months. Repeat a.m. labs and continue to monitor closely. Further recommendations to follow based on the clinical course of the patient. Due to multiple complex medical issues, prognosis is guarded. Possible discharge in 24- 48 hours. Objective - Vital Signs Vital signs: Vital Signs Temp 98.2 F 04/10/21 07:00 Pulse 92 04/10/21 07:00 Resp 18 04/10/21 07:00 BP 92/63 04/10/21 07:00 Pulse Ox 95 04/10/21 07:00 Intake & Output 04/09/21 04/10/21 04/10/21 18:59 06:59 18:59 Intake Total 486.000 136.033 Balance 486.000 136.033 Intake: Intake, IV Titration 250.000 136.033 Amount Heparin Sod,Pork in 0.45% 250.000 136.033 NaCl 25,000 unit In 0.45 % NaCl 1 250ml.bag @ 12 UNITS/KG/HR 9.58 mls/hr IV .Q24H [facility] Rx#: [id number] Oral 236 Other: Voiding Method Toilet # Voids 4 3 # Bowel Movements 0 - Labs CBC & Chem 7: 04/09/21 04:27 04/09/21 04:27 Labs: Abnormal Lab Results - Last 24 Hours (Table) 04/09/21 04/09/21 04/09/21 Range/Units 04:27 04:27 04:27 WBC 3.59 L (4.50-10.00) X 10*3/uL RBC 3.76 L (4.10-5.20) X 10*6/uL Hgb 11.6 L (12.0-15.0) g/dL MCV 100.0 H (80.0-97.0) fL MCHC 30.9 L (32.0-37.0) g/dL RDW 15.5 H (11.5-14.5) % Plt Count 71 L (140-440) X 10*3/uL Plt Count Comment DECREASED A Lymphocytes # 0.45 L (0.90-5.00) X 10*3/uL PT 12.3 H (9.9-11.9) sec INR 1.12 H (0.90-1.11) APTT (22.0-30.0) sec Sodium 133 L (135-145) mmol/L Anion Gap 8.20 L (10.00-18.00) mmol/L Creatinine 0.5 L (0.6-1.5) mg/dL BUN/Creatinine Ratio 22.60 H (12.00-20.00) Ratio Total Bilirubin 1.60 H (0.30-1.20) mg/dL Total Protein 5.3 L (6.2-8.2) g/dL Albumin 2.8 L (3.8-4.9) g/dL Albumin/Globulin Ratio 1.12 L (1.60-3.17) g/dL 04/09/21 04/09/21 Range/Units 14:55 21:45 WBC (4.50-10.00) X 10*3/uL RBC (4.10-5.20) X 10*6/uL Hgb (12.0-15.0) g/dL MCV (80.0-97.0) fL MCHC (32.0-37.0) g/dL RDW (11.5-14.5) % Plt Count (140-440) X 10*3/uL Plt Count Comment Lymphocytes # (0.90-5.00) X 10*3/uL PT (9.9-11.9) sec INR (0.90-1.11) APTT 41.6 H 58.8 H (22.0-30.0) sec Sodium (135-145) mmol/L Anion Gap (10.00-18.00) mmol/L Creatinine (0.6-1.5) mg/dL BUN/Creatinine Ratio (12.00-20.00) Ratio Total Bilirubin (0.30-1.20) mg/dL Total Protein (6.2-8.2) g/dL Albumin (3.8-4.9) g/dL Albumin/Globulin Ratio (1.60-3.17) g/dL Microbiology - Last 24 Hours (Table) 04/09/21 20:07 Urine Culture - Preliminary Urine,Voided 04/08/21 20:00 Blood Culture - Preliminary Blood No Growth after 24 hours
[2021-04-11 03:17] LABS: HCT 40.9 % (34.0-46.0); HGB 13.5 gm/dL (11.4-16.0); MCH 32.3 pg (25.0-35.0); MCHC 32.9 g/dL (31.0-37.0); MCV 98.1 fL (80.0-100.0); Macrocytosis Slight; Platelet Count 152 k/uL (150-450); RBC 4.17 m/uL (3.80-5.40); RDW 15.4 % (11.5-15.5); WBC 4.8 k/uL (3.8-10.6)
[2021-04-11] MEDS: FUROSEMIDE 40 MG TAB PO SCH ×2 (08:08→16:18)
[2021-04-11] MEDS: SPIRONOLACTONE 25 MG TAB PO SCH ×2 (08:09→20:18)
[2021-04-11] MEDS: PANTOPRAZOLE 40 MG/10 ML VIAL IVP SCH (08:10)
--- NOTE | 2021-04-11 10:50 | P.PN ---
Subjective Progress Note Date: 04/11/21 Patient seen and examined at bedside. States she is feeling much better. States she is urinating a significant amount with the diuretics. Denies any further output from the incision site. Objective - Vital Signs Vital signs: Vital Signs Temp 98.1 F 04/11/21 07:28 Pulse 97 04/11/21 07:28 Resp 16 04/11/21 07:28 BP 93/61 04/11/21 07:28 Pulse Ox 93 L 04/11/21 07:28 Intake & Output 04/10/21 04/11/21 04/11/21 18:59 06:59 18:59 Intake Total 75.414 74.576 Balance 75.414 74.576 Weight 78.1 kg Intake: Intake, IV Titration 75.414 74.576 Amount Heparin Sod,Pork in 0.45% 75.414 74.576 NaCl 25,000 unit In 0.45 % NaCl 1 250ml.bag @ 12 UNITS/KG/HR 9.58 mls/hr IV .Q24H [facility] Rx#: [id number] Other: Voiding Method Toilet # Voids 2 3 - Constitutional General appearance: Present: cooperative, no acute distress - Gastrointestinal Gastrointestinal Comment(s): Incision site is clean, dry and intact without any further ascites leakage, nontender, nondistended - Psychiatric Psychiatric: Present: A&O x's 3 - Labs CBC & Chem 7: 04/11/21 02:51 04/09/21 04:27 Labs: Abnormal Lab Results - Last 24 Hours (Table) 04/10/21 04/11/21 Range/Units 20:23 02:51 APTT 80.8 H 61.9 H (22.0-30.0) sec Microbiology - Last 24 Hours (Table) 04/08/21 20:00 Blood Culture - Preliminary Blood No Growth after 48 hours 04/09/21 20:07 Urine Culture - Final Urine,Voided Assessment and Plan Plan: 04/09 60-year-old female with history of primary biliary cirrhosis and ascites draining from recent surgical wound. Case was discussed with the patient's hepa tobiliary surgeon, Dr. Hany Sheridan, at the [facility] where she had her previous procedures performed.We are unable to transfer the patient to his service based on the current Covid pandemic and no bed availability having shortages. At this time, he agrees with the plan for diuresis and therapeutic paracentesis along with likely suturing of the incision site with 2-0 nylon suture and application of skin glue. Additionally, we will await GI recommendations. This is likely secondary to mild decompensation of the liver after multiple procedures in the last month or so. 04/10 The patient has had a significant decrease in the amount of ascites draining from the midline incision. Case was discussed with her hepatobiliary surgeon at the [facility] and plan for diuresis and paracentesis was agreed upon. Paracentesis was attempted today, however there was not enough fluid to perform. Patient was offered suturing of the midline incision as recommended by her hepatobiliary surgeon, however due to the decrease of ascites leakage, the patient prefers to not have this performed at this time. We will continue with diuresis. No plan for acute surgical intervention. We'll continue to follow and provide recommendations based on the patient's clinical progress. 04/11 No further output of ascites from the midline incision. Patient states that she would like to forego any suturing or glue placement on the site. Continue with diuresis. Primary team did discuss the case with the patient's hepatobiliary surgeon at [facility] and anticoagulation with Lovenox was agreed upon due to portal venous thrombosis. Currently, no plan for any acute surgical intervention. Patient appears to be progressing.
--- NOTE | 2021-04-11 11:55 | P.PN ---
Subjective Progress Note Date: 04/11/21 Principal diagnosis: Portal vein thrombosis In follow-up today patient denies any bleeding while on the heparin drip. No drainage currently from her abdominal incisions. Her abdominal distention is stable. Objective - Vital Signs Vital signs: Vital Signs Temp 98.1 F 04/11/21 07:28 Pulse 97 04/11/21 07:28 Resp 16 04/11/21 07:28 BP 93/61 04/11/21 07:28 Pulse Ox 93 L 04/11/21 07:28 Intake & Output 04/10/21 04/11/21 04/11/21 18:59 06:59 18:59 Intake Total 75.414 74.576 Balance 75.414 74.576 Weight 78.1 kg Intake: Intake, IV Titration 75.414 74.576 Amount Heparin Sod,Pork in 0.45% 75.414 74.576 NaCl 25,000 unit In 0.45 % NaCl 1 250ml.bag @ 12 UNITS/KG/HR 9.58 mls/hr IV .Q24H [facility] Rx#: [id number] Other: Voiding Method Toilet # Voids 2 3 - Constitutional General appearance: Present: average body habitus, cooperative, no acute distress - EENT Eyes: Present: anicteric sclerae, EOMI ENT: Present: hearing grossly normal - Respiratory Details: Respirations even and unlabored - Gastrointestinal General gastrointestinal: Present: distended - Musculoskeletal Musculoskeletal: Present: strength equal bilaterally - Psychiatric Psychiatric: Present: A&O x's 3, appropriate affect, intact judgment & insight - Labs CBC & Chem 7: 04/11/21 02:51 04/09/21 04:27 Labs: Abnormal Lab Results - Last 24 Hours (Table) 04/10/21 04/11/21 Range/Units 20:23 02:51 APTT 80.8 H 61.9 H (22.0-30.0) sec Microbiology - Last 24 Hours (Table) 04/08/21 20:00 Blood Culture - Preliminary Blood No Growth after 48 hours 04/09/21 20:07 Urine Culture - Final Urine,Voided Assessment and Plan (1) Portal vein thrombosis Narrative/Plan: Confirmed weight today is 78 kg. [facility] P D Driver recommended daily dosing of therapeutic dose Lovenox. At 1-1/2 mg/kg per day, dosing will be 120 mg subcu daily. Rx was sent for the same. Has been confirmed by Case Management co-pays $15, Patient states she can afford. Prescription was sent for 30 days supply. Patient was reminded that she needs to follow-up with her P D Driver as soon as possible after discharge for further instructions. Current Visit: Yes Status: Acute Priority: High Code(s): I81 - PORTAL VEIN THROMBOSIS SNOMED Code(s): 07228195 (2) Thrombocytopenia Narrative/Plan: Pt has known, chronic low plt 2/2 liver disease. Plt reported normal at 152,000 today. Advised close monitoring of plt counts while awaiting follow up with Hepatology. She verbalized understanding Current Visit: Yes Status: Chronic Priority: Medium Code(s): D69.6 - THROMBOCYTOPENIA, UNSPECIFIED SNOMED Code(s): 121861293
[2021-04-11] MEDS: ENOXAPARIN 120 MG/0.8 ML SYRINGE SQ SCH (13:55)
--- NOTE | 2021-04-11 15:47 | PN ---
PROGRESS NOTE DATE OF SERVICE: 04/11/2021 REASON FOR FOLLOWUP: Ascites and a question of SBP. INTERVAL HISTORY: The patient is afebrile. The patient's abdominal pain is currently decreased in intensity. The patient denies having any chest pain or shortness of breath or cough. No nausea, no vomiting and no diarrhea. PHYSICAL EXAMINATION: Blood pressure is 90/66, pulse of 74, temperature 98.1. She is 96% on room air. General description is a middle-aged female up in the bed in no distress. Respiratory system: Unlabored breathing, decreased intensity of breath sounds. No wheeze. Heart S1, S2. Regular rate and rhythm. Abdomen soft, no tenderness. LABS: Hemoglobin is 13.4, white count 4.8. DIAGNOSTIC IMPRESSION AND PLAN: Patient admitted to hospital with ascites with concern for possible SBP. Patient's subsequent ultrasound did not show any fluid. Paracentesis was cancelled. Clinically not behaving as SBP. Antibiotic can be safely discontinued. Will monitor the patient closely. MMODL / IJN: [id number] /
--- NOTE | 2021-04-11 15:52 | P.PN ---
Subjective Progress Note Date: 04/11/21 Principal diagnosis: Ascites This is 60-year-old female with a history of primary biliary cirrhosis diagnosed approximately 22 years ago and follows with [facility]. recently had hernia surgery in the beginning of February was discharged home having abdominal pain and distention brought back in and had an exploratory lap for bowel obstruction on 03/30/2021. She was discharged home however states that during that hospitalization she was having some abdominal distention at that time but was discharged. She said during her hospitalization she was not on any diuretics and started retaking them last week . She was on them for about 3 days however continued to have abdominal distention now with fluid draining from her abdominal incision therefore called her surgeon who told her to go to the emergency room for further evaluation. Patient was having copious amounts of serous and serosanguineous drainage from the incision site. The patient is seen today in follow-up with no complaints. Yesterday she went to undergo a paracentesis however there was no fluid. She has not had any more fluid drainage from the abdominal incision. Gen. surgery is on consult for further management of her abdominal incision wound. She has been afebrile. No leukocytosis. Objective - Vital Signs Vital signs: Vital Signs Temp 98.1 F 04/11/21 14:00 Pulse 74 04/11/21 14:00 Resp 18 04/11/21 14:00 BP 90/66 04/11/21 14:00 Pulse Ox 96 04/11/21 14:00 Intake & Output 04/10/21 04/11/21 04/11/21 18:59 06:59 18:59 Intake Total 75.414 74.576 Balance 75.414 74.576 Weight 78.1 kg Intake: Intake, IV Titration 75.414 74.576 Amount Heparin Sod,Pork in 0.45% 75.414 74.576 NaCl 25,000 unit In 0.45 % NaCl 1 250ml.bag @ 12 UNITS/KG/HR 9.58 mls/hr IV .Q24H [facility] Rx#: [id number] Other: Voiding Method Toilet # Voids 2 3 3 # Bowel Movements 1 - Exam General appearance: The patient is alert, oriented, appears in no acute distress. HET: Head is normocephalic and atraumatic. Conjunctiva pink. Sclera anicteric. Neck: Supple without lymphadenopathy. Abdomen: Soft, nontender, nondistended with bowel sounds. No guarding or rigidity. Abdominal incision with dressing clean dry and intact. No drainage from abdominal incision. Extremities: No pedal edema. Skin: No rashes, no jaundice Neurological: No focal deficits. Alert and oriented x3. - Labs CBC & Chem 7: 04/11/21 02:51 04/09/21 04:27 Labs: Abnormal Lab Results - Last 24 Hours (Table) 04/10/21 04/11/21 Range/Units 20:23 02:51 APTT 80.8 H 61.9 H (22.0-30.0) sec Microbiology - Last 24 Hours (Table) 04/08/21 20:00 Blood Culture - Preliminary Blood No Growth after 48 hours 04/09/21 20:07 Urine Culture - Final Urine,Voided Assessment and Plan (1) Ascites Narrative/Plan: This 60-year-old female with a history of primary biliary cirrhosis diagnosed approximately 22 years ago who calls with [facility]. Patient recently underwent hernia repair March 27 followed by bowel obstruction for which she underwent exploratory lap March 30 again at [facility]. She was discharged home however at that time states she did have some abdominal distention however states nobody seemed concerned. During her hospitalization she states she had not been on her diuretics but has been on diuretics for some time now related to ascites. She denies any previous paracentesis in the past. And states that her ascites has been controlled with her diuretics. She states that she takes 40 mg of Lasix twice a day and Aldactone 100 mg daily apparently she was having some abdominal discomfort and distention and contacted her surgeon who told her to go to the emergency room for evaluation. She's been having clear and serosanguineous drainage from her incision site for the last 2- 3 days duration. She's been afebrile and no evidence of leukocytosis. She had a CT of the abdomen and pelvis that did show moderate amount of ascites as well as a portal vein thrombosis. She was started on IV heparin drip. Gen. surgery is on consult as well. Plan as for paracentesis. Patient was scheduled for paracentesis today. However patient did go down and ultrasound was obtained and she no longer had any ascites present. Patient had copious amounts of drainage yesterday from her abdominal wall incision. Nursing and patient reports small to scant amount of drainage at this point in time. Current Visit: Yes Status: Acute Code(s): R18.8 - OTHER ASCITES SNOMED Code(s): 072399879 (2) Primary biliary cirrhosis Current Visit: Yes Status: Acute Code(s): K74.3 - PRIMARY BILIARY CIRRHOSIS SNOMED Code(s): 13703119 (3) Portal vein thrombosis Current Visit: Yes Status: Acute Priority: High Code(s): I81 - PORTAL VEIN THROMBOSIS SNOMED Code(s): 99629360 Plan: 1. Continue symptomatic and supportive care 2. Recommend discharge on Lasix 40 mg twice a day and Aldactone 100 mg BID 3. Continue with recommendations from surgical services 4. Patient to follow-up with liver specialist at [facility] on discharge. Thank you for this consultation, we will sign off at this time. Dr. Cesar Best I agree with the dictator's note, documented as a scribe by Teresa Govea.
[2021-04-11] MEDS: PANTOPRAZOLE 40 MG TABLET PO SCH (20:18)
[2021-04-11] MEDS: carvediloL 6.25 MG TAB PO SCH (20:19)
--- NOTE | 2021-04-12 02:57 | P.PN ---
Subjective Progress Note Date: 04/11/21 This is a pleasant 60-year-old female who was recently admitted with increasing abdominal distention and some leaking from previous surgical site from March 30 and was recently discharged on April 03 from [facility]. Patient follows with Dr. Hany Sheridan out of [facility] and c onversation is being discussed as there are no beds available to transfer to [facility]. Patient had surgery consult along with GI for possible paracentesis and surgical intervention to this leaking site on the abdomen and patient reluctant to proceed with paracentesis until all medical consultations have discussed with Dr. sheridan treatment plan moving forward. General surgery Dr. Foss following and did discuss the case with the [facility] and GI consult is pending. 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 Patient is maintained on IV heparin will need to be held prior to paracentesis. A she to continue with IV Lasix twice daily along with oral Aldactone and patient also continues on IV ceftriaxone. Infectious disease also consulted and pending. 04/10/2021 Patient is seen and evaluated in follow up this morning and status post paracentesis. Patient was told by interventional radiology that there is not enough fluid to perform the paracentesis and procedure was cancelled. Surgery made aware. Patient continues with abdominal leak and currently has an ostomy bag at the abdominal site and draining has decreased in volume per patient and staff antisubmarine officer and will monitor overnight with possible stitch and surgical glue to the site per the recommendations of her appliance counselor Dr. Sheridan. Also discussed with Dr. Sheridan from of about anticoagulation as patient remains on IV heparin for portal vein thrombosis which Dr. Sheridan also feels has not changed and appears chronic. Recommending subcutaneous lovenox for three months with follow up imaging in the outpatient setting at that time. Patient is agreeable with this and will repeat am labs and monitor output. Patient is continued on IV lasix and aldactone and will continue. Patient also continues on IV ceftriaxone while awaiting urine cultures. Will consult hematology and appreciate their in put and recommendations. 04/11/2021 Patient is seen in follow up this morning and just discussed with Dr. Foss and will continue to observe overnight for any worsening leak. Patient states the draining has improved and will reassess in the morning if a suture and or surgical glue is necessary. Patient started on lovenox and IV heparin discontinued. Verified coverage of lovenox. Encourage nursing staff to educate on self administration of subcutaneous lovenox. Instructed the patient to avoid abdomen if possible for injection sites given the leak and ascites and recent abdominal surgery. Patient transitioned to oral lasix and will continue to monitor and observe closely overnight with possible discharge in 24 hours. Review of systems: Constitutional: reports of fatigue, no reports of fever, or chills Cardiovascular: No reports of chest pain or palpitations Respiratory: No reports of shortness of breath or cough GI: No reports of nausea, vomiting, or diarrhea, reports abdominal distention and some tenderness with continued leaking at the recent surgical site, although has lessened in volume of output : No reports of dysuria or retention Neurovascular: No reports of weakness or numbness All medications have been reviewed Active Medications Carvedilol (Carvedilol 6.25 Mg Tab) 6.25 mg PO HS FORMERLY [facility], [facility]1983 Last Admin: 04/10/21 21:16 Dose: Not Given Documented by: Enoxaparin Sodium (Enoxaparin 120 Mg/0.8 Ml Syringe) 120 mg SQ DAILY@1400 FOR[facility]LY [facility], [facility]1983 Last Admin: 04/11/21 13:55 Dose: 120 mg Documented by: Furosemide (Furosemide 40 Mg Tab) 40 mg PO BID@0900,1600 FOR[facility]LY [facility], [facility] Last Admin: 04/11/21 08:08 Dose: 40 mg Documented by: Ceftriaxone Sodium 1 gm/ (Sodium Chloride) 50 mls @ 100 mls/hr IVPB Q24HR FOR[facility]LY [facility], [facility]1983 Last Admin: 04/11/21 08:08 Dose: 100 mls/hr Documented by: Morphine Sulfate (Morphine Sulfate 4 Mg/Ml Syringe) 4 mg IV Q4HR PRN PRN Reason: Severe Pain Last Admin: 04/08/21 20:11 Dose: 4 mg Documented by: Naloxone HCl (Naloxone 0.4 Mg/Ml 1 Ml Vial) 0.2 mg IV Q2M PRN PRN Reason: Opioid Reversal Ondansetron HCl (Ondansetron 4 Mg/2 Ml Vial) 4 mg IVP Q8HR PRN PRN Reason: Nausea And Vomiting Last Admin: 04/08/21 22:18 Dose: 4 mg Documented by: Pantoprazole Sodium (Pantoprazole 40 Mg Tablet) 40 mg PO BID FOR[facility]LY [facility], [facility] Spironolactone (Spironolactone 25 Mg Tab) 100 mg PO BID FOR[facility]LY [facility], [facility] Last Admin: 04/11/21 08:09 Dose: 100 mg Documented by: Physical exam: Gen: This is a 60-year-old female awake, alert and oriented 3, well-developed, well-nourished. Temp is 98.1F, pulse is 97, respirations are 16, blood pressure is 93/61, oxygen saturation is 93% on room air HEENT: Head is atraumatic, normocephalic. Pupils equal, round. Sclerae is anic teric. NECK: Supple. No JVD. No lymphadenopathy. No thyromegaly. LUNGS: Diminished breath sounds bilaterally with no wheezing or rhonchi noted. No intercostal retractions. HEART: S1, S2 are muffled ABDOMEN: Soft. Distended. Bowel sounds are present. No masses. No tenderness. ostomy bag noted for drainage collection EXTREMITIES: No pedal edema. No calf tenderness. NEUROLOGICAL: Patient is awake, alert and oriented x3. Cranial nerves 2 through 12 are grossly intact. Assessment: Abdominal ascites as well as leaking from the surgical site, possibly secondary to cirrhosis of the liver History of recent surgery for small bowel obstruction as well as hiatal hernia 2 at the [facility] Possible acute on chronic portal vein thrombosis History of primary biliary cirrhosis Hyperlipidemia history of hernia repair History of hysterectomy history of degenerative joint disease remote history of nicotine dependence Full code Plan: Recommend to continue with current medications and management. Patient is maintained on IV Lasix and Aldactone. Transitioning to oral lasix. Gen. surgery Dr. Foss following closely along with GI and infectious disease. Patient is maintained on IV ceftriaxone and will continue. Urine culture negative and will not require antibiotics on discharge. Has had 4 days of IV ceftriaxone. Will monitor drainage overnight with the possibility of placing a stitch if leaking persists. Patient was maintained on IV heparin and has transitioned to lovenox with hematology following. Dr. Sheridan her [facility] doctor was notified. Repeat a.m. labs and continue to monitor closely. Further recommendations to follow based on the clinical course of the patient. Due to multiple complex medical issues, prognosis is guarded. Possible discharge in 24 hours. Objective - Vital Signs Vital signs: Vital Signs Temp 98.1 F 04/11/21 07:28 Pulse 97 04/11/21 07:28 Resp 16 04/11/21 07:28 BP 93/61 04/11/21 07:28 Pulse Ox 93 L 04/11/21 07:28 Intake & Output 04/10/21 04/11/21 04/11/21 18:59 06:59 18:59 Intake Total 75.414 74.576 Balance 75.414 74.576 Weight 78.1 kg Intake: Intake, IV Titration 75.414 74.576 Amount Heparin Sod,Pork in 0.45% 75.414 74.576 NaCl 25,000 unit In 0.45 % NaCl 1 250ml.bag @ 12 UNITS/KG/HR 9.58 mls/hr IV .Q24H FORMERLY [facility], [facility]1983 Rx#: [id number] Other: Voiding Method Toilet # Voids 2 3 - Labs CBC & Chem 7: 04/11/21 02:51 04/09/21 04:27 Labs: Abnormal Lab Results - Last 24 Hours (Table) 04/10/21 04/11/21 Range/Units 20:23 02:51 APTT 80.8 H 61.9 H (22.0-30.0) sec Microbiology - Last 24 Hours (Table) 04/08/21 20:00 Blood Culture - Preliminary Blood No Growth after 48 hours 04/09/21 20:07 Urine Culture - Final Urine,Voided
[2021-04-12] MEDS: SPIRONOLACTONE 25 MG TAB PO SCH ×2 (07:28→20:23)
[2021-04-12] MEDS: FUROSEMIDE 40 MG TAB PO SCH ×2 (07:29→15:43)
[2021-04-12] MEDS: PANTOPRAZOLE 40 MG TABLET PO SCH (07:29)
[2021-04-12 07:39] LABS: African American GFR (CKD) >90 (>60 ml/min/1.73 sqM); Anion Gap 4 mmol/L; Blood Urea Nitrogen 13 mg/dL (7-17); Calcium 8.6 mg/dL (8.4-10.2); Carbon Dioxide 31 mmol/L (22-30); Chloride 93 mmol/L (98-107); Glucose 95 mg/dL (74-99); Non-African American GFR(CKD) >90 (>60 ml/min/1.73 sqM); Potassium 4.6 mmol/L (3.5-5.1); Sodium 128 mmol/L (137-145)
--- NOTE | 2021-04-12 14:18 | US ---
EXAMINATION TYPE: US abdomen limited DATE OF EXAM: 04/12/2021 COMPARISON: Correlation CT 04/08/2021 CLINICAL HISTORY: 60-year-old female Worsening abdominal distention, ascites. TECHNIQUE: All four abdominal quadrants scanned to assess for fluid after trauma. This study is a fo cused, limited study. This is not a FAST scan as it does not meet the established AIUM guidelines as such. FINDINGS: Fluid seen in RLQ and lower ML, and a trace of fluid seen in LUQ IMPRESSION: Overall mild abdominal ascites.
[2021-04-12] MEDS ORDERED: LACTULOSE 20 GM/30 ML CUP PO PRN (14:38)
--- NOTE | 2021-04-12 15:22 | P.PN ---
Subjective Progress Note Date: 04/12/21 Patient seen and examined at bedside. States that since this morning she has felt much more distended. Denies any difficulty in breathing. No drainage from the incision site. Objective - Vital Signs Vital signs: Vital Signs Temp 98.5 F 04/12/21 07:52 Pulse 96 04/12/21 07:52 Resp 16 04/12/21 07:52 BP 90/66 04/12/21 07:52 Pulse Ox 92 L 04/12/21 07:52 Intake & Output 04/11/21 04/12/21 04/12/21 18:59 06:59 18:59 Intake Total 260 240 Balance 260 240 Weight 78.1 kg Intake: Oral 260 240 Other: Voiding Method Toilet # Voids 3 4 # Bowel Movements 1 - Constitutional General appearance: Present: cooperative, no acute distress - Gastrointestinal Gastrointestinal Comment(s): Soft, nontender, moderate distention, midline incision clean, dry and intact without any drainage, no rebound, no guarding - Labs CBC & Chem 7: 04/11/21 02:51 04/12/21 06:46 Labs: Abnormal Lab Results - Last 24 Hours (Table) 04/12/21 Range/Units 06:46 Sodium 128 L (137-145) mmol/L Chloride 93 L (98-107) mmol/L Carbon Dioxide 31 H (22-30) mmol/L Microbiology - Last 24 Hours (Table) 04/08/21 20:00 Blood Culture - Preliminary Blood No Growth after 72 hours Assessment and Plan Plan: 04/09 60-year-old female with history of primary biliary cirrhosis and ascites draining from recent surgical wound. Case was discussed with the patient's hepatobiliary surgeon, Dr. Hany Sheridan, at the [facility] where she had her previous procedures performed.We are unable to transfer the patient to his service based on the current Covid pandemic and no bed availability having shortages. At this time, he agrees with the plan for diuresis and therapeutic paracentesis along with likely suturing of the incision site with 2-0 nylon suture and application of skin glue. Additionally, we will await GI recommendations. This is likely secondary to mild decompensation of the liver after multiple procedures in the last month or so. 04/10 The patient has had a significant decrease in the amount of ascites draining from the midline incision. Case was discussed with her hepatobiliary surgeon at the [facility] and plan for diuresis and paracentesis was agreed upon. Paracentesis was attempted today, however there was not enough fluid to perform. Patient was offered suturing of the midline incision as recommended by her hepatobiliary surgeon, however due to the decrease of ascites leakage, the patient prefers to not have this performed at this time. We will continue with diuresis. No plan for acute surgical intervention. We'll continue to follow and provide recommendations based on the patient's clinical progress. 04/11 No further output of ascites from the midline incision. Patient states that she would like to forego any suturing or glue placement on the site. Continue with diuresis. Primary team did discuss the case with the patient's hepatobiliary surgeon at [facility] and anticoagulation with Lovenox was agreed upon due to portal venous thrombosis. Currently, no plan for any acute surgical intervention. Patient appears to be progressing. 04/12 Patient having increased distention today. Ultrasound is pending for evaluation for paracentesis. Patient does not have any drainage from the midline incision and would like to forego any suturing or glue placement at this time. Continue with diuresis.
--- NOTE | 2021-04-12 15:22 | P.PN ---
Subjective Progress Note Date: 04/12/21 Principal diagnosis: Ascites This is 60-year-old female with a history of primary biliary cirrhosis diagnosed approximately 22 years ago and follows with [facility]. recently had hernia surgery in the beginning of February was discharged home having abdominal pain and distention brought back in and had an exploratory lap for bowel obstruction on 03/30/2021. She was discharged home however states that during that hospitalization she was having some abdominal distention at that time but was discharged. She said during her hospitalization she was not on any diuretics and started retaking them last week . She was on them for about 3 days however continued to have abdominal distention now with fluid draining from her abdominal incision therefore called her surgeon who told her to go to the emergency room for further evaluation. Patient was having copious amounts of serous and serosanguineous drainage from the incision site. The patient was scheduled to undergo paracentesis however at that time she had no fluid. She is seen and examined today as a follow-up and has had some abdominal swelling and distention. She's not had any further drainage from her incision. Gen. surgery concern for possible recurrent ascites. The patient de nies any shortness of breath or chest pain. She has been decreased to Lasix 40 mg twice a day, Aldactone was increased to 100 mg twice a day. Objective - Vital Signs Vital signs: Vital Signs Temp 98.5 F 04/12/21 07:52 Pulse 96 04/12/21 07:52 Resp 16 04/12/21 07:52 BP 90/66 04/12/21 07:52 Pulse Ox 92 L 04/12/21 07:52 Intake & Output 04/11/21 04/12/21 04/12/21 18:59 06:59 18:59 Intake Total 260 240 Balance 260 240 Weight 78.1 kg Intake: Oral 260 240 Other: Voiding Method Toilet # Voids 3 4 # Bowel Movements 1 - Exam General appearance: The patient is alert, oriented, appears in no acute distress. HET: Head is normocephalic and atraumatic. Conjunctiva pink. Sclera anicteric. Neck: Supple without lymphadenopathy. Abdomen: Soft, nontender, distended with generalized edema. No guarding or rigidity. Abdominal incision clean dry and intact. Extremities: No pedal edema. Skin: No rashes, no jaundice Neurological: No focal deficits. Alert and oriented x3. - Labs CBC & Chem 7: 04/11/21 02:51 04/12/21 06:46 Labs: Abnormal Lab Results - Last 24 Hours (Table) 04/12/21 Range/Units 06:46 Sodium 128 L (137-145) mmol/L Chloride 93 L (98-107) mmol/L Carbon Dioxide 31 H (22-30) mmol/L Microbiology - Last 24 Hours (Table) 04/08/21 20:00 Blood Culture - Preliminary Blood No Growth after 72 hours Assessment and Plan (1) Ascites Narrative/Plan: This 60-year-old female with a history of primary biliary cirrhosis diagnosed approximately 22 years ago who calls with [facility]. Patient recently underwent hernia repair March 27 followed by bowel obstruction for which she underwent exploratory lap March 30 again at [facility]. She was discharged home however at that time states she did have some abdominal distention however states nobody seemed concerned. During her hospitalization she states she had not been on her diuretics but has been on diuretics for some time now related to ascites. She denies any previous paracentesis in the past. And states that her ascites has been controlled with her diuretics. She states that she takes 40 mg of Lasix twice a day and Aldactone 100 mg daily apparently she was having some abdominal discomfort and distention and contacted her surgeon who told her to go to the emergency room for evaluation. She's been having clear and serosanguineous drainage from her incision site for the last 2- 3 days duration. She's been afebrile and no evidence of leukocytosis. She had a CT of the abdomen and pelvis that did show moderate amount of ascites as well as a portal vein thrombosis. She was started on IV heparin drip. Gen. surgery is on consult as well. Plan as for paracentesis. Patient was scheduled for paracentesis today. However patient did go down and ultrasound was obtained and she no longer had any ascites present. Patient had copious amounts of drainage yesterday from her abdominal wall incision. Nursing and patient reports small to scant amount of drainage at this point in time. Current Visit: Yes Status: Acute Code(s): R18.8 - OTHER ASCITES SNOMED Code(s): 430029357 (2) Primary biliary cirrhosis Current Visit: Yes Status: Acute Code(s): K74.3 - PRIMARY BILIARY CIRRHOSIS SNOMED Code(s): 20487499 (3) Portal vein thrombosis Current Visit: Yes Status: Acute Priority: High Code(s): I81 - PORTAL VEIN THROMBOSIS SNOMED Code(s): 15913746 Plan: 1. Continue symptomatic and supportive care 2. Continue Lasix 40 mg twice a day and Aldactone 100 mg BID 3. Continue with recommendations from surgical services 4. Abdominal ultrasound ordered to assess for fluid pocket. Spoke to radiology and there is not enough fluid for paracentesis. 5. Patient to follow-up with liver specialist at [facility] on discharge. Thank you for this consultation, we will continue to follow. Dr. Cesar Best I agree with the dictator's note, documented as a scribe by Teresa Govea.
[2021-04-12] MEDS: ENOXAPARIN 120 MG/0.8 ML SYRINGE SQ SCH (15:30)
--- NOTE | 2021-04-12 17:35 | P.PN ---
Subjective Progress Note Date: 04/12/21 This is a pleasant 60-year-old female who was recently admitted with increasing abdominal distention and some leaking from previous surgical site from March 30 and was recently discharged on April 03 from [facility]. Patient follows with Dr. Hany Sheridan out of [facility] and c onversation is being discussed as there are no beds available to transfer to [facility]. Patient had surgery consult along with GI for possible paracentesis and surgical intervention to this leaking site on the abdomen and patient reluctant to proceed with paracentesis until all medical consultations have discussed with Dr. sheridan treatment plan moving forward. General surgery Dr. Foss following and did discuss the case with the [facility] and GI consult is pending. 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 Patient is maintained on IV heparin will need to be held prior to paracentesis. A she to continue with IV Lasix twice daily along with oral Aldactone and patient also continues on IV ceftriaxone. Infectious disease also consulted and pending. 04/10/2021 Patient is seen and evaluated in follow up this morning and status post paracentesis. Patient was told by interventional radiology that there is not enough fluid to perform the paracentesis and procedure was cancelled. Surgery made aware. Patient continues with abdominal leak and currently has an ostomy bag at the abdominal site and draining has decreased in volume per patient and direct support staff member and will monitor overnight with possible stitch and surgical glue to the site per the recommendations of her pricing consultant Dr. Sheridan. Also discussed with Dr. Sheridan from of about anticoagulation as patient remains on IV heparin for portal vein thrombosis which Dr. Sheridan also feels has not changed and appears chronic. Recommending subcutaneous lovenox for three months with follow up imaging in the outpatient setting at that time. Patient is agreeable with this and will repeat am labs and monitor output. Patient is continued on IV lasix and aldactone and will continue. Patient also continues on IV ceftriaxone while awaiting urine cultures. Will consult hematology and appreciate their in put and recommendations. 04/11/2021 Patient is seen in follow up this morning and just discussed with Dr. Foss and will continue to observe overnight for any worsening leak. Patient states the draining has improved and will reassess in the morning if a suture and or surgical glue is necessary. Patient started on lovenox and IV heparin discontinued. Verified coverage of lovenox. Encourage nursing staff to educate on self administration of subcutaneous lovenox. Instructed the patient to avoid abdomen if possible for injection sites given the leak and ascites and recent abdominal surgery. Patient transitioned to oral lasix and will continue to monitor and observe closely overnight with possible discharge in 24 hours. 04/12/2021 She is seen in follow-up today and anticipating being discharged. Patient denies any worsening leakage of the abdominal surgical site and general surgery along with GI following closely. Patient continues on Lovenox along with oral Lasix and Aldactone and feels she has been diuresing well. Repeat labs show a sodium level of 128 and will continue fluid restrictions and encouraged oral intake especially protein. Patient was initially supposed to be discharged although nursing staff reported increasing abdominal distention when standing and will repeat ultrasound of the abdomen to assess for ascites with possible IR consultation for paracentesis. Review of systems: Constitutional: reports of fatigue, no reports of fever, or chills Cardiovascular: No reports of chest pain or palpitations Respiratory: No reports of shortness of breath or cough GI: No reports of nausea, vomiting, or diarrhea, reports abdominal distention that has worsened since this morning : No reports of dysuria or retention Neurovascular: No reports of weakness or numbness All medications have been reviewed Active Medications Carvedilol (Carvedilol 6.25 Mg Tab) 6.25 mg PO HS [facility] Last Admin: 04/11/21 20:19 Dose: 6.25 mg Documented by: Enoxaparin Sodium (Enoxaparin 120 Mg/0.8 Ml Syringe) 120 mg SQ DAILY@1400 [facility] Last Admin: 04/12/21 15:30 Dose: 120 mg Documented by: Furosemide (Furosemide 40 Mg Tab) 40 mg PO BID@0900,1600 [facility] Last Admin: 04/12/21 15:43 Dose: 40 mg Documented by: Lactulose (Lactulose 20 Gm/30 Ml Cup) 20 gm PO TID PRN PRN Reason: Constipation Morphine Sulfate (Morphine Sulfate 4 Mg/Ml Syringe) 4 mg IV Q4HR PRN PRN Reason: Severe Pain Last Admin: 04/08/21 20:11 Dose: 4 mg Documented by: Naloxone HCl (Naloxone 0.4 Mg/Ml 1 Ml Vial) 0.2 mg IV Q2M PRN PRN Reason: Opioid Reversal Ondansetron HCl (Ondansetron 4 Mg/2 Ml Vial) 4 mg IVP Q8HR PRN PRN Reason: Nausea And Vomiting Last Admin: 04/08/21 22:18 Dose: 4 mg Documented by: Pantoprazole Sodium (Pantoprazole 40 Mg/10 Ml Vial) 40 mg IVP BID JOHN Spironolactone (Spironolactone 25 Mg Tab) 100 mg PO BID JOHN Last Admin: 04/12/21 07:28 Dose: 100 mg Documented by: Physical exam: Gen: This is a 60-year-old female awake, alert and oriented 3, well-developed, well-nourished. Temp is 98.5F, pulse is 96, respirations are 16, blood pressure is 90/66, oxygen saturation is 92% on room air HEENT: Head is atraumatic, normocephalic. Pupils equal, round. Sclerae is anicteric. NECK: Supple. No JVD. No lymphadenopathy. No thyromegaly. LUNGS: Diminished breath sounds bilaterally with no wheezing or rhonchi noted. No intercostal retractions. HEART: S1, S2 are muffled ABDOMEN: Soft. Distended. Bowel sounds are present. No masses. No tenderness. EXTREMITIES: No pedal edema. No calf tenderness. NEUROLOGICAL: Patient is awake, alert and oriented x3. Cranial nerves 2 through 12 are grossly intact. Assessment: Abdominal ascites as well as leaking from the surgical site, possibly secondary to cirrhosis of the liver History of recent surgery for small bowel obstruction as well as hiatal hernia 2 at the [facility] Possible acute on chronic portal vein thrombosis Mild hyponatremia History of primary biliary cirrhosis Hyperlipidemia history of hernia repair History of hysterectomy history of degenerative joint disease remote history of nicotine dependence Full code Plan: Recommend to continue with current medications and management. Patient is maintained on oral Lasix and Aldactone. Gen. surgery Dr. Foss following closely along with GI and infectious disease. The ceftriaxone was discontinued as cultures are negative. Patient was initially scheduled to be discharged although after reevaluation with nursing staff when patient was getting up to take a shower patient's abdomen is significantly more distended and will get ultrasound and assess for ascites with possible IR consultation for parace ntesis. Further recommendations to follow based on the clinical course of the patient. Due to multiple complex medical issues, prognosis is guarded. Possible discharge in 24 hours. Objective - Vital Signs Vital signs: Vital Signs Temp 98.5 F 04/12/21 07:52 Pulse 96 04/12/21 07:52 Resp 16 04/12/21 07:52 BP 90/66 04/12/21 07:52 Pulse Ox 92 L 04/12/21 07:52 Intake & Output 04/11/21 04/12/21 04/12/21 18:59 06:59 18:59 Intake Total 260 Balance 260 Weight 78.1 kg Intake: Oral 260 Other: Voiding Method Toilet # Voids 3 4 # Bowel Movements 1 - Labs CBC & Chem 7: 04/11/21 02:51 04/12/21 06:46 Labs: Abnormal Lab Results - Last 24 Hours (Table) 04/12/21 Range/Units 06:46 Sodium 128 L (137-145) mmol/L Chloride 93 L (98-107) mmol/L Carbon Dioxide 31 H (22-30) mmol/L Microbiology - Last 24 Hours (Table) 04/08/21 20:00 Blood Culture - Preliminary Blood No Growth after 72 hours
[2021-04-12] MEDS: carvediloL 6.25 MG TAB PO SCH (20:21)
[2021-04-12] MEDS: PANTOPRAZOLE 40 MG/10 ML VIAL IVP SCH (20:23)
[2021-04-12] MEDS ORDERED: ACETAMINOPHEN TAB 325 MG TAB PO PRN (20:35)
--- NOTE | 2021-04-12 21:42 | XR ---
EXAMINATION TYPE: XR ABDOMEN ACUTE W CXR - 4V DATE OF EXAM: 04/12/2021 HISTORY: Pain/distention TECHNIQUE: Department protocol. COMPARISON: CT 04/08/2021 FINDINGS: Chest: Frontal view was obtained. There is a coarse reticular pattern throughout the lungs bilaterall y and symmetrically. This process has been appearance of chronic interstitial lung change. However, c oncurrent interstitial pulmonary edema can only be excluded clinically. Abdomen and pelvis: Two supine and one upright views were obtained. There is no pneumoperitoneum. The bowel gas pattern is unremarkable as there is air throughout nondilated small and large bowel. No sizeable air fluid levels. No mass effects are seen. No unusual calcifications. No acute skeletal findings. IMPRESSION: CHEST: Chronic interstitial lung change noted, request clinical exclusion of concurrent pulmonary violetta ma. ABDOMEN AND PELVIS: No acute radiographic abdominal pelvic findings.
--- NOTE | 2021-04-12 23:15 | PN ---
PROGRESS NOTE DATE OF SERVICE: 04/12/2021 REASON FOR FOLLOWUP: Ascites and question of . INTERVAL HISTORY: The patient is afebrile. The patient is complaining of more abdominal distention today and decreased urine output. No chest pain, shortness of breath or cough. No diarrhea. PHYSICAL EXAMINATION: Blood pressure is 90/66, pulse of 96, temperature 98.5, she is 92% on room air. General description is a middle-aged female up in the bed in no distress. Respiratory system: Unlabored breathing, decreased intensity in breath sounds. No wheeze. Heart S1, S2. Regular rate and rhythm. Abdomen: Soft, mildly distended. No guarding, no rigidity. LABS: Creatinine 0.55, white count 4.8. DIAGNOSTIC IMPRESSION AND PLAN: Patient with abdominal distention concerning for an ascites , clinically not behaving . The patient is currently monitored off antibiotic therapy with increased distention. May benefit from repeat ultrasound. Continue supportive care. MMODL / IJN: [id number] /
[2021-04-13] MEDS: FUROSEMIDE 40 MG TAB PO SCH ×3 (08:41→15:11)
[2021-04-13] MEDS: SPIRONOLACTONE 25 MG TAB PO SCH (08:42)
[2021-04-13] MEDS: PANTOPRAZOLE 40 MG/10 ML VIAL IVP SCH (08:43)
[2021-04-13 10:11] LABS: African American GFR (CKD) >90 (>60 ml/min/1.73 sqM); Anion Gap 6 mmol/L; Blood Urea Nitrogen 15 mg/dL (7-17); Calcium 8.8 mg/dL (8.4-10.2); Carbon Dioxide 28 mmol/L (22-30); Chloride 94 mmol/L (98-107); Glucose 131 mg/dL (74-99); Non-African American GFR(CKD) >90 (>60 ml/min/1.73 sqM); Sodium 128 mmol/L (137-145)
[2021-04-13 10:22] LABS: Potassium 4.8 mmol/L (3.5-5.1)
[2021-04-13] MEDS: IOPAMIDOL CONTRAST (ORAL USE) VIAL PO PRN ×2 (12:01→12:59)
--- NOTE | 2021-04-13 12:11 | P.PN ---
Subjective Progress Note Date: 04/13/21 Patient seen and examined at bedside. Abdominal distention is somewhat improved, however still present. Patient complains of some pain around the incision site. There is no active drainage from the incision site. Objective - Vital Signs Vital signs: Vital Signs Temp 98 F 04/13/21 07:00 Pulse 98 04/13/21 07:00 Resp 16 04/13/21 07:00 BP 88/57 04/13/21 07:00 Pulse Ox 93 L 04/13/21 07:00 Intake & Output 04/12/21 04/13/21 04/13/21 18:59 06:59 18:59 Intake Total 240 Output Total 700 Balance 240 -700 Intake: Oral 240 Output: Urine 700 Other: Voiding Method Toilet # Voids 2 - Constitutional General appearance: Present: cooperative - Respiratory Details: No difficulty with respiration - Gastrointestinal General gastrointestinal: Present: distended, soft. Absent: tenderness - Psychiatric Psychiatric: Present: A&O x's 3 - Labs CBC & Chem 7: 04/11/21 02:51 04/13/21 09:37 Labs: Abnormal Lab Results - Last 24 Hours (Table) 04/13/21 Range/Units 09:37 Sodium 128 L (137-145) mmol/L Chloride 94 L (98-107) mmol/L Glucose 131 H (74-99) mg/dL Microbiology - Last 24 Hours (Table) 04/08/21 20:00 Blood Culture - Preliminary Blood No Growth after 96 hours Assessment and Plan Plan: 04/09 60-year-old female with history of primary biliary cirrhosis and ascites draining from recent surgical wound. Case was discussed with the patient's hepatobiliary surgeon, Dr. Hany Sheridan, at the [facility] where she had her previous procedures performed.We are unable to transfer the patient to his service based on the current Covid pandemic and no bed availability having shortages. At this time, he agrees with the plan for diuresis and therapeutic paracentesis along with likely suturing of the incision site with 2-0 nylon suture and application of skin glue. Additionally, we will await GI recommendations. This is likely secondary to mild decompensation of the liver after multiple procedures in the last month or so. 04/10 The patient has had a significant decrease in the amount of ascites draining from the midline incision. Case was discussed with her hepatobiliary surgeon at the [facility] and plan for diuresis and paracentesis was agreed upon. Paracentesis was attempted today, however there was not enough fluid to perform. Patient was offered suturing of the midline incision as recommended by her hepatobiliary surgeon, however due to the decrease of ascites leakage, the patient prefers to not have this performed at this time. We will continue with diuresis. No plan for acute surgical intervention. We'll continue to follow and provide recommendations based on the patient's clinical progress. 04/11 No further output of ascites from the midline incision. Patient states that she would like to forego any suturing or glue placement on the site. Continue with diuresis. Primary team did discuss the case with the patient's hepatobiliary surgeon at [facility] and anticoagulation with Lovenox was agreed upon due to portal venous thrombosis. Currently, no plan for any acute surgical intervention. Patient appears to be progressing. 04/12 Patient having increased distention today. Ultrasound is pending for evaluation for paracentesis. Patient does not have any drainage from the midline incision and would like to forego any suturing or glue placement at this time. Continue with diuresis. 04/13 Distention mildly improved today. Ultrasound was reviewed with no significant intra-abdominal ascites. Most of distention is likely secondary to anasarca or edema. Continue with diuresis. Continue medical management. No active drai nage from the incision site.
--- NOTE | 2021-04-13 14:28 | CT ---
EXAMINATION TYPE: CT abdomen pelvis wo con DATE OF EXAM: 04/13/2021 COMPARISON: 04/08/2021 HISTORY: Abdominal distention CT DLP: 704.70 mGycm Automated exposure control for dose reduction was used. TECHNIQUE: Helical acquisition of images was performed from the lung bases through the pelvis. FINDINGS: LUNG BASES: Emphysematous changes are seen as well as findings compatible with chronic interstitial LIVER/GB: Calcifications adjacent to the liver again noted. There is a small amount of ascites. There is markedly nodular pattern. Lack of contrast limits assessment for mass. Correlate for hepatic cirr hosis. Cholelithiasis. PANCREAS: Pancreatic calcification stable. Could be within the course of the CBD. Pancreatic head mas s does not extend SPLEEN: Spleen measures 14 cm correlate for splenomegaly. There are numerous splenic varices. ADRENALS: No significant abnormality is seen. KIDNEYS: No hydronephrosis. There is a cortical calcification of the right kidney with left cortical loss, chronic renal disease. Malrotation of the right kidney persists.. Upper pole left renal lesion stable from prior exam and most typical cyst ADENOPATHY: None visualized. OSSEOUS STRUCTURES: Hypertrophic and degenerative changes spine. Arthropathy of the hips. Stable matias earing compression deformities T12 and L2. BOWEL: No evidence of obstruction. There is a wall thickening involving the right colon particularly noted on axial image 59 could be in the basis of a colitis. A mass is not excluded. Correlate clinic ally. OTHER: There is a [id number] amount of ascites. There is anterior abdominal wall hernia contai екатерина ascites fluid as well as a small amount of air. Correlate clinically. Mild subcutaneous edema co rrelate for anasarca. Mesenteric haziness can be associated with ascites mesenteritis correlate clini gerber to exclude peritonitis. IMPRESSION: 1. Suspect cirrhosis with small to moderate amount of ascites. Haziness of the mesenteric be associat ed with ascites or mesenteric right is. Peritonitis is not excluded correlate clinically. Omental and mesenteric implants not excluded but felt less likely 2. There appears to be marked wall thickening of the right colon as noted above correlate for colitis . No masses that excluded. Findings particularly noted on image 58. 3. Malrotation of the right kidney with nonobstructing cortical renal calcification. 4. Chronic interstitial lung disease and evidence of COPD. 5. Anasarca. 6. Stable pancreatic calcifications possibly within the distal CBD. Pancreatic mass not excluded by n oncontrast technique. Recommend follow-up MRI. 7. Cholelithiasis
[2021-04-13] MEDS: ENOXAPARIN 120 MG/0.8 ML SYRINGE SQ SCH (15:11)
[2021-04-13 16:52] LABS: Appearance,Urine Clear (Clear); Bilirubin,Urine Negative (Negative); Blood,Urine Negative (Negative); Color,Urine Yellow; Glucose,Urine (UA) Negative (Negative); Ketones,Urine Negative (Negative); Leukocyte Esterase,Urine Negative (Negative); Nitrite,Urine Negative (Negative); Protein,Urine Negative (Negative); Specific Gravity,Urine 1.015 (1.001-1.035)
--- NOTE | 2021-04-13 17:04 | P.PN ---
Subjective Progress Note Date: 04/13/21 Principal diagnosis: Ascites This is 60-year-old female with a history of primary biliary cirrhosis diagnosed approximately 22 years ago and follows with [facility]. recently had hernia surgery in the beginning of February was discharged home having abdominal pain and distention brought back in and had an exploratory lap for bowel obstruction on 03/30/2021. She was discharged home however states that during that hospitalization she was having some abdominal distention at that time but was discharged. She said during her hospitalization she was not on any diuretics and started retaking them last week . She was on them for about 3 days however continued to have abdominal distention now with fluid draining from her abdominal incision therefore called her surgeon who told her to go to the emergency room for further evaluation. Patient was having copious amounts of serous and serosanguineous drainage from the incision site. 04/12/21 The patient was scheduled to undergo paracentesis however at that time she had no fluid. She is seen and examined today as a follow-up and has had some abdominal swelling and distention. She's not had any further drainage from her incision. Gen. surgery concern for possible recurrent ascites. The patient denies any shortness of breath or chest pain. She has been decreased to Lasix 40 mg twice a day, Aldactone was increased to 100 mg twice a day. 04/13/2021 Patient was seen and examined. Yesterday she underwent ultrasound to assess for fluid pocket for possible paracentesis. No significant amount of ascites seen. Patient has mostly anasarca. She states she's been having some coughing through the night and some left lower quadrant tenderness. She is not having any further drainage from her abdominal incision site. Diuretics have been adjusted. She denies any nausea, vomiting, fevers or chills. She's been afebrile. Gen. surgery is following closely. This afternoon the patient had a CT of the abdomen that time shows cirrhosis with small to moderate amount of ascites. There is haziness of the mesenteric that could be associated with ascites. Peritonitis is not excluded. Omental and mesenteric implants excluded but felt less likely there was marked wall thickening of the right colon chronic interstitial lung disease, anasarca, and stable pancreatic calcifications poss ibly within the distal CBD. Pancreatic mass not excluded. Cholelithiasis. Patient follows closely with the [facility] surgeons as well as the hepatology services. Objective - Vital Signs Vital signs: Vital Signs Temp 98 F 04/13/21 07:00 Pulse 98 04/13/21 07:00 Resp 16 04/13/21 07:00 BP 88/57 04/13/21 07:00 Pulse Ox 93 L 04/13/21 07:00 Intake & Output 04/12/21 04/13/21 04/13/21 18:59 06:59 18:59 Intake Total 240 Output Total 700 Balance 240 -700 Intake: Oral 240 Output: Urine 700 Other: Voiding Method Toilet # Voids 2 - Exam General appearance: The patient is alert, oriented, appears in no acute d istress. HET: Head is normocephalic and atraumatic. Conjunctiva pink. Sclera anicteric. Neck: Supple without lymphadenopathy. Abdomen: Soft, nontender, abdominal edema with mild erythema surrounding incision. No guarding or rigidity. Abdominal incision clean dry and intact. Extremities: No pedal edema. Skin: No rashes, no jaundice Neurological: No focal deficits. Alert and oriented x3. - Labs CBC & Chem 7: 04/11/21 02:51 04/13/21 09:37 Labs: Abnormal Lab Results - Last 24 Hours (Table) 04/13/21 Range/Units 09:37 Sodium 128 L (137-145) mmol/L Chloride 94 L (98-107) mmol/L Glucose 131 H (74-99) mg/dL Microbiology - Last 24 Hours (Table) 04/08/21 20:00 Blood Culture - Preliminary Blood No Growth after 96 hours Assessment and Plan (1) Ascites Narrative/Plan: This 60-year-old female with a history of primary biliary cirrhosis diagnosed approximately 22 years ago who calls with [facility]. Patient recently underwent hernia repair March 27 followed by bowel obstruction for which she underwent exploratory lap March 30 again at [facility]. She was discharged home however at that time states she did have some abdominal distention however states nobody seemed concerned. During her hospitalization she states she had not been on her diuretics but has been on diuretics for some time now related to ascites. She denies any previous paracentesis in the past. And states that her ascites has been controlled with her diuretics. She states that she takes 40 mg of Lasix twice a day and Aldactone 100 mg daily apparently she was having some abdominal discomfort and distention and contacted her surgeon who told her to go to the emergency room for evaluation. She's been having clear and serosanguineous drainage from her incision site for the last 2- 3 days duration. She's been afebrile and no evidence of leukocytosis. She had a CT of the abdomen and pelvis that did show moderate amount of ascites as well as a portal vein thrombosis. She was started on IV heparin drip. Gen. surgery is on consult as well. Plan as for paracentesis. Patient was scheduled for paracentesis today. However patient did go down and ultrasound was obtained and she no longer had any ascites present. Patient had copious amounts of drainage yesterday from her abdominal wall incision. Nursing and patient reports small to scant amount of drainage at this point in time. Current Visit: Yes Status: Acute Code(s): R18.8 - OTHER ASCITES SNOMED Code(s): 498594881 (2) Primary biliary cirrhosis Current Visit: Yes Status: Acute Code(s): K74.3 - PRIMARY BILIARY CIRRHOSIS SNOMED Code(s): 39795915 (3) Portal vein thrombosis Current Visit: Yes Status: Acute Priority: High Code(s): I81 - PORTAL VEIN THROMBOSIS SNOMED Code(s): 08761971 Plan: 1. Continue symptomatic and supportive care 2. Continue Lasix 40 mg twice a day and Aldactone 100 mg BID 3. Continue with recommendations from surgical services. 4. Patient to follow-up with liver specialist at [facility] on discharge. 5. Patient is cleared for discharge by gastroenterology is otherwise medically stable. Thank you for allowing us to participate in the care of the patient, the GI service will sign off, gastroenterology will not be available at the hospital this weekend and through next week. If further evaluation by gastroenterology is required the patient will need transfer as per the primary team's discretion. Dr. Cesar Best I agree with the dictator's note, documented as a scribe by Teresa Govea.
--- NOTE | 2021-04-13 19:34 | PN ---
PROGRESS NOTE DATE OF SERVICE: 04/13/2021 REASON FOR FOLLOWUP: Ascites and question . INTERVAL HISTORY: The patient is afebrile. The patient is breathing comfortably. Still complaining of abdominal distention. No pain though. No nausea. No vomiting. No diarrhea. PHYSICAL EXAMINATION: Blood pressure is 95/67, pulse of 110, temperature 98.3. She is 100% on room air. General description is a middle-aged female up in the bed in no distress. Respiratory system: Unlabored breathing, decreased intensity of breath sounds. No wheeze. Heart S1, S2. Regular. Abdomen: Soft, mildly distended. No guarding. No rigidity. LABS: White count normal at 4.8, creatinine 0.52. CT of abdomen and pelvis did show evidence of cirrhosis DIAGNOSTIC IMPRESSION AND PLAN: Patient with ascites in this patient with no fever or elevated white count. Clinically doing well off antibiotic therapy. No need for antibiotic on discharge. Continue supportive care. MMODL / IJN: [id number] /
[2021-04-13 19:36] VITALS: BP 95/69; PULSE 75; RESP 20; TEMP 97.8
--- NOTE | 2021-04-15 10:21 | P.DS ---
Providers Date of admission: 04/09/21 10:42 Expected date of discharge: 04/13/21 Attending physician: Marisela Belcher MD Consults: 04/08/21 17:35 Consult Physician Routine Consulting Provider: Bert Foss Consult Reason/Comments: ascites, ascitic fluid leak from surgical site. Do you want consulting provider notified?: Yes 04/08/21 19:06 Consult Physician Routine Consulting Provider: Rudolph Corral Consult Reason/Comments: peritonitis? Do you want consulting provider notified?: Yes 04/10/21 13:00 Consult Physician Urgent Consulting Provider: Kar Guerrero Consult Reason/Comments: Portal vein thrombosis, currently on IV heparin, anticoagulant recommendati Do you want consulting provider notified?: Yes Primary care physician: Anuj Sutton Hospital Course: Final diagnosis Abdominal ascites as well as leaking from the surgical site, possibly secondary to cirrhosis of the liver History of recent surgery for small bowel obstruction as well as hiatal hernia 2 at the [facility] Possible acute on chronic portal vein thrombosis Mild hyponatremia History of primary biliary cirrhosis Hyperlipidemia history of hernia repair History of hysterectomy history of degenerative joint disease remote history of nicotine dependence Full code Discharge disposition Patient is being discharged in a stable condition with guarded prognosis to home. Patient will follow-up with Dr. Sutton in the outpatient setting upon discharge. She will also follow-up with Dr. Hany Lim at [facility] as scheduled. Patient will continue on Lasix and Aldactone and also start the patient on Protonix and recommend repeat labs in the outpatient setting. Sugar from provided for repeat labs in 2-3 days to monitor kidney functions and electrolytes Total time taken is greater than 35 minutes. Hospital course This is a 60-year-old female who was recently admitted with increasing abdominal distention and leaking from previous surgical site for bowel surgery out of [facility] and there was a possibility of transferring to tertiary treatment Center for continuity of care although no beds available. Patient was evaluated by surgery along with GI and infectious disease. Patient resumed on Aldactone and Lasix and surgical site with no drainage although continues with distention. Repeat ultrasound and CT done for possible paracentesis although not enough fluid at this time. Patient also started on Lovenox for pulmonary vein thrombosis and will follow-up with Dr. lim outpatient closely as he has been in contact with her throughout this hospitalization. Currently no reports of chest pain, shortness of breath, or palpitations. Patient is afebrile. No reports of nausea or vomiting and patient is tolerating diet. Patient will be discharged to home today. Guarded prognosis. On exam vital signs are stable. Cardio S1, S2 are muffled. Respiratory system shows diminished breath sounds at the bases with no wheezing or rhonchi noted. Abdomen is soft and nontender. Nervous system shows no focal deficits. Please refer to medication reconciliation sheet for a list of medications. Patient Condition at Discharge: Stable Plan - Discharge Summary Discharge Rx Participant: No New Discharge Prescriptions: New Enoxaparin [Lovenox] 120 mg SQ DAILY #30 each Simethicone [Gas-X] 125 mg PO TID PRN #30 capsule PRN Reason: Bloating Pantoprazole Sodium [Protonix] 40 mg PO DAILY #30 tab Acetaminophen Tab [Tylenol] 650 mg PO Q6HR PRN tab PRN Reason: Fever And/ Or Pain Continue ursodioL [Actigall] 600 mg PO BID Carvedilol [Coreg] 6.25 mg PO HS Spironolactone [Aldactone] 100 mg PO BID 30 Days #120 tab Furosemide [Lasix] 40 mg PO BID 30 Days #60 tab Discontinued Cephalexin [Keflex] 500 mg PO BID Discharge Medication List Carvedilol [Coreg] 6.25 mg PO HS 10/15/18 [History] ursodioL [Actigall] 600 mg PO BID 10/15/18 [History] Enoxaparin [Lovenox] 120 mg SQ DAILY #30 each 04/11/21 [Rx] Acetaminophen Tab [Tylenol] 650 mg PO Q6HR PRN tab 04/13/21 [Rx] Furosemide [Lasix] 40 mg PO BID 30 Days #60 tab 04/13/21 [Rx] Pantoprazole Sodium [Protonix] 40 mg PO DAILY #30 tab 04/13/21 [Rx] Simethicone [Gas-X] 125 mg PO TID PRN #30 capsule 04/13/21 [Rx] Spironolactone [Aldactone] 100 mg PO BID 30 Days #120 tab 04/13/21 [Rx] Follow up Appointment(s)/Referral(s): Anuj Sutton DO [Primary Care Provider] - 1 Week Ambulatory/Diagnostic Orders: Complete Blood Count w/diff [LAB.AMB] Time Frame: 3 Days, Location: None Selected Patient Instructions/Handouts: Ascites (DC) Activity/Diet/Wound Care/Special Instructions: Activity Limited until follow-up Follow-up with primary care provider on discharge Follow-up with Dr. lim out of [facility] Recommend repeat labs in 2-3 days Continue current diet long with fluid restrictions of 40 oz daily Discharge Disposition: HOME SELF-CARE
== END 2021-04-13 20:05 | disposition home or self-care (01) | DRG 919 ==
LOC: EC 11:37 → 6NMEDSUR 17:34 → OBSVTOIN 04-09 10:42 → 6NMEDSUR 04-12 00:12
PROVIDERS: ADMIT Internal Medicine; ATTEND Internal Medicine
DX: T81.89XA Other complications of procedures, not elsewhere classified, initial encounter (principal); I81 Portal vein thrombosis; I26.99 Other pulmonary embolism without acute cor pulmonale; E87.1 Hypo-osmolality and hyponatremia; K56.609 Unspecified intestinal obstruction, unspecified as to partial versus complete obstruction; K76.6 Portal hypertension; R18.8 Other ascites; Z20.822 Contact with and (suspected) exposure to COVID-19; D69.59 Other secondary thrombocytopenia; E78.5 Hyperlipidemia, unspecified; Z53.8 Procedure and treatment not carried out for other reasons; E87.8 Other disorders of electrolyte and fluid balance, not elsewhere classified; I86.8 Varicose veins of other specified sites; K74.3 Primary biliary cirrhosis; K80.20 Calculus of gallbladder without cholecystitis without obstruction; Z90.710 Acquired absence of both cervix and uterus; Z87.891 Personal history of nicotine dependence; Z79.899 Other long term (current) drug therapy; K86.89 Other specified diseases of pancreas; M19.90 Unspecified osteoarthritis, unspecified site; R16.1 Splenomegaly, not elsewhere classified
CPT/HCPCS: 36415; 74022; 74176; 74177; 76705; 76770; 80048; 80053; 81001; 81003; 82150; 83605; 83690; 85025; 85027; 85610; 85730; 87040; 87086; 87635; 93005; 96365; 96366; 96368; 96375; 96376; 99291